=== PATIENT | female | born 1945 | race Caucasian/White ===

== ENCOUNTER 2017-05-03 08:24 | Day surgery (SDC) | payer MEDICAID ==
[2017-04-25 10:06] VITALS: BMI 40.8
[2017-05-03] MEDS ORDERED: Midazolam 2 MG/2 ML VIAL ONE (09:53)
[2017-05-03] MEDS ORDERED: Propofol 10 mg/ml Inj (20 ML) ONE (09:53)
[2017-05-03] MEDS ORDERED: Etomidate 40 MG/20 ML ML IV ONE (09:54)
[2017-05-03 10:18] VITALS: O2SAT 99
[2017-05-03] MEDS ORDERED: Sodium Chloride 0.9% 1,000 ML IV SCH (10:30)
[2017-05-03 13:47] VITALS: BP 118/61; PULSE 68; RESP 16; TEMP 98.5
== END 2017-05-03 12:25 | disposition home or self-care (01) ==
LOC: ENDO 08:24 → EDBD 09:15 → ENDO 12:25
PROVIDERS: ATTEND Internal Medicine Gastroenterology
DX: Z12.11 Encounter for screening for malignant neoplasm of colon (principal); K64.1 Second degree hemorrhoids; R10.13 Epigastric pain; K29.50 Unspecified chronic gastritis without bleeding; I10 Essential (primary) hypertension; E66.9 Obesity, unspecified; Z68.41 Body mass index [BMI] 40.0-44.9, adult
CPT/HCPCS: 43239; 45378; 88305; 88342; J2250; J2704; J3010; J7040 ×2

== ENCOUNTER 2017-09-06 10:03 | Emergency (ER) | payer MEDICAID ==
[2017-09-06 10:04] VITALS: BMI 40.8
--- NOTE | 2017-09-06 11:03 | ED PDOC ---
Arrival/HPI - General Chief Complaint: GI Problem Time Seen by Provider: 09/06/17 10:38 Historian: Patient - History of Present Illness Narrative History of Present Illness (Text): 09/06/17 11:03 This 71 yo female with pmh celiac disease, HTN, chronic diarrhea, s/p appendectomy, presents to to this ED c/o generalized abdominal pain pain, and diarrhea. Patient stated she has been having similar symptoms last month, when she had a CT scan of abdomen. CT scan demonstrated pancolitis. Patient started taking Cipro, and Flagyl x 4 days. Patient stated abdominal pain is not worse when compare from last month. Patient denies fever, sob, cp, leg swelling, recent travel, sick contact, or abnormal gait. Time/Duration: Other (see hpi) Context: Home Past Medical History - Provider Review Nursing Documentation Reviewed: Yes - Infectious Disease Hx of Infectious Diseases: None - Tetanus Immunization Tetanus Immunization: Unknown - Cardiac Hx Cardiac Disorders: Yes Hx Hypertension: Yes - Pulmonary Hx Respiratory Disorders: No - Neurological Hx Neurological Disorder: No - HEENT Hx HEENT Disorder: Yes Hx Cataracts: Yes - Renal Hx Renal Disorder: No - Endocrine/Metabolic Hx Endocrine Disorders: No - Hematological/Oncological Hx Blood Disorders: No - Integumentary Hx Dermatological Disorder: No - Musculoskeletal/Rheumatological Hx Musculoskeletal Disorders: Yes - Gastrointestinal Hx Gastrointestinal Disorders: Yes Hx Gastrointestinal Ulcer: Yes - Genitourinary/Gynecological Hx Genitourinary Disorders: No - Psychiatric Hx Emotional Abuse: No Hx Physical Abuse: No Hx Substance Use: No - Surgical History Hx Eye Surgery: Yes - Anesthesia Hx Anesthesia Reactions: No Hx Malignant Hyperthermia: No - Suicidal Assessment Feels Threatened In Home Enviroment: No Family/Social History - Physician Review Nursing Documentation Reviewed: Yes Family/Social History: Other (noncontributory) Smoking Status: Never Smoked Hx Alcohol Use: No Hx Substance Use: No Hx Substance Use Treatment: No Allergies/Home Meds Allergies/Adverse Reactions: Allergies aspirin Allergy (Verified 09/06/17 10:26) ITCHING gluten Allergy (Verified 09/06/17 10:26) DIARRHEA Home Medications: Home Meds Medication Instructions Recorded Confirmed Simvastatin [Zocor] 20 mg PO QPM 04/25/17 09/06/17 Ciprofloxacin [Cipro] 500 mg PO Q12 09/06/17 09/06/17 amLODIPine [Norvasc] 2.5 mg PO DAILY 09/06/17 09/06/17 metroNIDAZOLE [Flagyl] 500 mg PO Q8 09/06/17 09/06/17 Review of Systems - Review of Systems Constitutional: Normal. absent: Fatigue, Weight Change, Fevers Eyes: Normal ENT: Normal Respiratory: Normal Cardiovascular: Normal Gastrointestinal: Abdominal Pain, Diarrhea, Other (denies rectal bleeding). absent: Nausea, Vomiting Genitourinary Female: Normal. absent: Dysuria, Frequency, Hematuria, Urine Output Changes, Vaginal Bleeding, Vaginal Discharge Musculoskeletal: Normal. absent: Back Pain, Neck Pain Skin: Normal. absent: Rash Neurological: Normal. absent: Headache, Dizziness, Focal Weakness, Gait Changes , Speech Changes, Facial Droop, Disequilibrium, Seizure Endocrine: Normal Hemo/Lymphatic: Normal Psychiatric: Normal Physical Exam Vital Signs Temp Pulse Resp BP Pulse Ox 09/06/17 16:28 97.7 F 81 16 106/68 98 09/06/17 10:28 98.3 F 66 16 110/72 98 Temperature: Afebrile Blood Pressure: Normal Pulse: Regular Respiratory Rate: Normal Appearance: Positive for: Well-Appearing, Non-Toxic, Comfortable Pain Distress: None Mental Status: Positive for: Alert and Oriented X 3 - Systems Exam Head: Present: Atraumatic, Normocephalic Pupils: Present: PERRL Extroacular Muscles: Present: EOMI Conjunctiva: Present: Normal Mouth: Present: Moist Mucous Membranes Neck: Present: Normal Range of Motion Respiratory/Chest: Present: Clear to Auscultation, Good Air Exchange. No: Respiratory Distress, Accessory Muscle Use Cardiovascular: Present: Regular Rate and Rhythm, Normal S1, S2. No: Murmurs Abdomen: No: Tenderness, Distention, Peritoneal Signs, Rebound, Guarding Back: Present: Normal Inspection Upper Extremity: Present: Normal Inspection, Normal ROM. No: Cyanosis, Edema Lower Extremity: Present: Normal Inspection, Normal ROM. No: Edema Neurological: Present: GCS=15, CN II-XII Intact, Speech Normal, Motor Func Grossly Intact, Normal Sensory Function, Normal Cerebellar Funct, Gait Normal Skin: Present: Warm, Dry, Normal Color. No: Rashes Psychiatric: Present: Alert, Oriented x 3, Normal Insight, Normal Concentration Medical Decision Making ED Course and Treatment: 09/06/17 17:[address] Lewis, GI fellow who works with [facility]. She stated if patient continues with symptoms, patient should be admitted for observation. Dr. Dodd would see patient this weekend. 09/06/17 18:20 Re-evaluation. Patient feels better, but she still has symptoms. Discussed results and plan to admit with patient who expresses understanding. All questions answered and there is agreement with the plan 09/06/17 19:40 Patient changed her mind. Patient wants to be discharge home. She says she feels better. Patient ' son at bedside. Patient is requesting Pepcid, and Zofran. I recommended patient to stay for observation, but she prefers leaving hospital AMA Leaving Against Medical Advice (AMA): This patient is choosing to leave against medical advice. The EP has personally explained to the pt that choosing to do so may result in permanent bodily harm or . The EP discussed at great length that without further evaluation and monitoring there may be unforeseen circumstances and/or deterioration causing permanent bodily harm or as a result of their choice. The pt verbalized these risks back to the physician in laymans terms. The pt is alert, oriented, and shows the mental capacity to make clear decisions regarding the pts health care at this time. The pt continues to wish to leave against medical advice. In light of the pts decision to leave AMA, follow-up has been recommended and the pt is aware of the importance of following up as instructed. The pt has been advised that they should return to the ED immediately if they change their mind at any time, or if thier condition begins to change or worsen in any way. Re-evaluation Time: 18:20 Reassessment Condition: Re-examined, Improving,but remains with symptoms - Lab Interpretations Lab Results: 09/06/17 11:04 09/06/17 11:04 Lab Results 09/06/17 11:04: Sodium 141, Potassium 4.9, Chloride 109 H, Carbon Dioxide 22, Anion Gap 15, BUN 15, Creatinine 0.7, Est GFR ( Amer) > 60, Est GFR (Non- Af Amer) > 60, Random Glucose 86, Calcium 9.6, Total Bilirubin 0.6, AST 112 H, ALT 99 H, Alkaline Phosphatase 90, Total Protein 7.2, Albumin 3.9, Globulin 3.2 , Albumin/Globulin Ratio 1.2, Lipase 185 09/06/17 11:04: Urine Color Yellow, Urine Appearance Clear, Urine pH 6.0, Ur Specific [place] 1.010, Urine Protein Negative, Urine Glucose (UA) Negative, Urine Ketones Negative, Urine Blood Negative, Urine Nitrate Negative, Urine Bilirubin Negative, Urine Urobilinogen 0.2, Ur Leukocyte Esterase Negative 09/06/17 11:04: WBC 5.1, RBC 4.59, Hgb 12.4, Hct 38.0, MCV 82.8, MCH 27.0, MCHC 32.6, RDW 15.2 H, Plt Count 374, MPV 10.0, Gran % 42.2 L, Lymph % (Auto) 46.8 H , Chase % (Auto) 8.8 H, Eos % (Auto) 1.6, Baso % (Auto) 0.6, Gran # 2.17, Lymph # (Auto) 2.4, Chase # (Auto) 0.5, Eos # (Auto) 0.1, Baso # (Auto) 0.03 I have reviewed the lab results: Yes Interpretation: Abnormal lab values (mild elevated LFTs) - RAD Interpretation Narrative RAD Interpretations (Text): 09/06/17 18:19 PROCEDURE: CT Abdomen and Pelvis without intravenous contrast HISTORY: Stomach pain, diarrhea COMPARISON: 08/05/2017. CT abdomen and pelvis TECHNIQUE: Unenhanced study. Neither oral nor intravenous contrast administered. Sensitivity and specificity for acute inflammatory processes limited by the absence of oral and intravenous contrast. Total exam DLP = 932.23 mGy-cm. This CT exam was performed using one or more of the following dose reduction techniques: Automated exposure control, adjustment of the mA and/or kV according to patient size, and/or use of iterative reconstruction technique. FINDINGS: LOWER THORAX: Mild distal esophageal thickening. Similar finding identified on the previous examination. LIVER: Unremarkable. No gross lesion or ductal dilatation. GALLBLADDER AND BILE DUCTS: Unremarkable. PANCREAS: Unremarkable. No gross lesion or ductal dilatation. SPLEEN: Unremarkable. ADRENALS: Unremarkable. No mass. KIDNEYS AND URETERS: Unremarkable. No hydronephrosis. No solid mass. VASCULATURE: Unremarkable. No aortic aneurysm. BOWEL: Fluid-filled loops of small bowel compatible with enteritis. No evidence of mechanical obstruction. Fluid-filled colon also identified. No mechanical obstructing lesions are identified. APPENDIX: Unremarkable. Normal appendix. PERITONEUM: Unremarkable. No free fluid. No free air. LYMPH NODES: Unremarkable. No enlarged lymph nodes. BLADDER: Unremarkable. REPRODUCTIVE: Unremarkable. BONES: No acute fracture. OTHER FINDINGS: None. IMPRESSION: Findings suggestive of enteritis without obstructing lesion. Similar less pronounced changes identified in the colon. Additional benign and/or incidental findings described above. Radiology Orders: 09/06/17 16:58 ABD & PELVIS W/O PO OR IV CONT [CT] Stat 09/06/17 18:24 CHEST PORTABLE [RAD] Stat - Medication Orders Current Medication Orders: Discontinued Medications Famotidine (Pepcid 20mg/50ml Premix) 20 mg IVPB STAT STA Stop: 09/06/17 11:05 Last Admin: 09/06/17 14:49 Dose: 20 mg eMAR Start Stop Document 09/06/17 14:49 [email or web address] (Rec: 09/06/17 14:50 [email or web address] [id number]) Intravenous Solution Start Date 09/06/17 Start Time 14:50 Sodium Chloride (Sodium Chloride 0.9%) 1,000 mls @ 999 mls/hr IV .Q1H1M STA Stop: 09/06/17 12:06 Last Admin: 09/06/17 13:00 Dose: 999 mls/hr eMAR Start Stop Document 09/06/17 13:00 [email or web address] (Rec: 09/06/17 14:48 [email or web address] [id number]) Intravenous Solution Start Date 09/06/17 Start Time 13:00 Morphine Sulfate (Morphine) 2 mg IVP STAT STA Stop: 09/06/17 11:08 Last Admin: 09/06/17 14:49 Dose: 2 mg MAR Pain Assessment Document 09/06/17 14:49 [email or web address] (Rec: 09/06/17 14:49 [email or web address] [id number]) Pain Reassessment Is this a pain reassessment? No Sleep Is patient sleeping during reassessment? No Presence of Pain Presence of Pain Yes Pain Scale Used Pain Scale Used Numeric Location Pain Location Body Site Abdomen Description Description Constant Intensity of Pain at present 7 Pain Behavior Facial Grimacing Aggravating Factors Changing Position Alleviating Factors/Management Medication Techniques Alleviating Factors Medication IVP Administration Document 09/06/17 14:49 [email or web address] (Rec: 09/06/17 14:49 [email or web address] [id number]) Charges for Administration # of IVP Administrations 1 Ondansetron HCl (Zofran Inj) 4 mg IVP STAT STA Stop: 09/06/17 11:05 Last Admin: 09/06/17 14:48 Dose: 4 mg IVP Administration Document 09/06/17 14:48 [facility] (Rec: 09/06/17 14:48 [facility] [id number]) Charges for Administration # of IVP Administrations 1 Disposition/Present on Arrival - Present on Arrival Any Indicators Present on Arrival: No History of DVT/PE: No History of Uncontrolled Diabetes: No Urinary Catheter: No History of Decub. Ulcer: No History Surgical Site Infection Following: None - Disposition Have Diagnosis and Disposition been Completed?: Yes Diagnosis: Enteritis, Colitis, Diarrhea, Intractable abdominal pain, Failure of outpatient treatment Disposition: AGAINST MEDICAL ADVICE Disposition Time: 19:55 Patient Problems: Current Active Problems Problem Status Onset Diarrhea Acute Enteritis Acute Colitis Acute Intractable abdominal pain Acute Failure of outpatient treatment Acute Condition: UNKNOWN Additional Instructions: Return to emergency if symptoms worsen. make sure to see your doctor tomorrow. drink Pedialyte to keep yourself hydrated Prescriptions: Famotidine [Pepcid] 40 mg PO DAILY #10 tablet Ondansetron ODT [Zofran ODT] 4 mg PO Q4H PRN #15 odt PRN Reason: Nausea/Vomiting Referrals: Robby Saucedo MD [Staff Provider] - Follow up with primary Forms: [employer] ([place])
[2017-09-06] MEDS ORDERED: Famotidine 20mg/50ml Premix IVPB STA (11:04)
[2017-09-06] MEDS ORDERED: Sodium Chloride 0.9% 1,000 ML IV STA (11:06)
[2017-09-06] MEDS ORDERED: Morphine 4 mg/ml ISec IVP STA (11:07)
[2017-09-06 11:32] LABS: BASO # 0.03 K/mm3 (0.0-2.0); BASO % 0.6 % (0.0-3.0); EOS # 0.1 (0.0-0.7); EOS % 1.6 % (1.5-5.0); GRAN # 2.17 (1.4-6.5); GRAN % 42.2 % (50.0-68.0); HEMOGLOBIN 12.4 g/dL (12.0-16.0); LYMPH # 2.4 (1.2-3.4); LYMPH % 46.8 % (22.0-35.0); MEAN CELL VOLUME 82.8 fl (80.0-105.0); MEAN CORPUSCULAR HGB CONC 32.6 g/dl (31.0-37.0); MONO # 0.5 (0.1-0.6); MONO % 8.8 % (1.0-6.0); RBC 4.59 10^6/uL (3.5-6.1); RED CELL DISTRIBUTION WIDTH 15.2 % (11.5-14.5); WHITE BLOOD COUNT 5.1 10^3/ul (4.5-11.0)
[2017-09-06 11:33] LABS: URINE BILIRUBIN NEGATIVE (NEGATIVE); URINE BLOOD NEGATIVE (NEGATIVE); URINE GLUCOSE (UA) NEGATIVE (NEGATIVE); URINE LEUKOCYTE ESTERASE NEGATIVE Leu/uL (NEGATIVE); URINE PROTEIN NEGATIVE mg/dL (<30 mg/dL); URINE UROBILINOGEN 0.2 E.U./dL (<1 E.U./dL)
[2017-09-06 11:37] LABS: URINE APPEARANCE CLEAR (CLEAR); URINE COLOR YELLOW (YELLOW)
[2017-09-06 12:20] LABS: ALB/GLOB RATIO 1.2 (1.1-1.8); ALBUMIN 3.9 g/dL (3.0-4.8); ALT/SGPT 99 U/L (7-56); AST/SGOT 112 U/L (14-36); BLOOD UREA NITROGEN 15 mg/dL (7-21); CALCIUM 9.6 mg/dL (8.4-10.5); GFR AFRICAN-AMERICAN > 60; GFR NON-AFRICAN AMERICAN > 60; LIPASE 185 U/L (23-300)
[2017-09-06] MEDS ORDERED: Pedialyte 1000 ml PO ONE (15:26)
[2017-09-06] MEDS ORDERED: Iohexol 350 MG/100 ML VIAL ONE (17:02)
--- NOTE | 2017-09-06 18:17 | CT ---
PROCEDURE: CT Abdomen and Pelvis without intravenous contrast HISTORY: Stomach pain, diarrhea COMPARISON: 08/05/2017. CT abdomen and pelvis TECHNIQUE: Unenhanced study. Neither oral nor intravenous contrast administered. Sensitivity and specificity for acute inflammatory processes limited by the absence of oral and intravenous contrast. Total exam DLP = 932.23 mGy-cm. This CT exam was performed using one or more of the following dose reduction techniques: Automated exposure control, adjustment of the mA and/or kV according to patient size, and/or use of iterative reconstruction technique. FINDINGS: LOWER THORAX: Mild distal esophageal thickening. Similar finding identified on the previous examination. LIVER: Unremarkable. No gross lesion or ductal dilatation. GALLBLADDER AND BILE DUCTS: Unremarkable. PANCREAS: Unremarkable. No gross lesion or ductal dilatation. SPLEEN: Unremarkable. ADRENALS: Unremarkable. No mass. KIDNEYS AND URETERS: Unremarkable. No hydronephrosis. No solid mass. VASCULATURE: Unremarkable. No aortic aneurysm. BOWEL: Fluid-filled loops of small bowel compatible with enteritis. No evidence of mechanical obstruction. Fluid-filled colon also identified. No mechanical obstructing lesions are identified. APPENDIX: Unremarkable. Normal appendix. PERITONEUM: Unremarkable. No free fluid. No free air. LYMPH NODES: Unremarkable. No enlarged lymph nodes. BLADDER: Unremarkable. REPRODUCTIVE: Unremarkable. BONES: No acute fracture. OTHER FINDINGS: None. IMPRESSION: Findings suggestive of enteritis without obstructing lesion. Similar less pronounced changes identified in the colon. Additional benign and/or incidental findings described above.
[2017-09-07 02:20] VITALS: BP 110/81; PULSE 85; RESP 17; TEMP 98.2; O2SAT 100
--- NOTE | 2017-09-07 10:05 | RAD ---
HISTORY: admission COMPARISON: 05/22/2015 FINDINGS: LUNGS: No active pulmonary disease. PLEURA: No significant pleural effusion identified, no pneumothorax apparent. CARDIOVASCULAR: Mild cardiomegaly OSSEOUS STRUCTURES: No significant abnormalities. VISUALIZED UPPER ABDOMEN: Normal. OTHER FINDINGS: None. IMPRESSION: No active disease.
== END 2017-09-06 20:20 | disposition left against medical advice (07) ==
LOC: ED 10:03
DX: K52.9 Noninfective gastroenteritis and colitis, unspecified (principal); R10.9 Unspecified abdominal pain; I10 Essential (primary) hypertension
CPT/HCPCS: 71045; 74176; 80053; 81003; 83690; 85025; 96374; 96375; 99284; J2270; J2405; J7040; Q9967

== ENCOUNTER 2017-09-08 17:42 | Inpatient (IN) | payer MEDICAID ==
[2017-09-08] MEDS ORDERED: Sodium Chloride 0.9% 1,000 ML IV STA (18:04)
[2017-09-08] MEDS ORDERED: Morphine 4 mg/ml ISec IVP STA (18:04)
--- NOTE | 2017-09-08 18:07 | ED PDOC ---
Arrival/HPI - General Chief Complaint: Abdominal Pain Time Seen by Provider: 09/08/17 18:03 Historian: Patient, Family (son at bedside, translating), Metal Finish Inspector (son) - History of Present Illness Narrative History of Present Illness (Text): 09/08/17 18:03 (son at bedside/translating) pt p/w + ~ 1 week onset of persistent/daily diarrhea; pt states diarrhea episodes are as much as ~ 30 times daily; pt states also noted worsening left lower abd tenderness; pt has had similar symptoms in the past, attributed to her celiac disorder/disease; pt states + chills, + weakness, + increasing fatigue; pt states no fever/sweats, no cp/sob/palpitations, no n/v, no appetite , no urinary changes, no gross bleeding, no fall/trauma/sick contact, no travel. per son, pt may have eaten something containing non-gluten free product and that precipitated pt's current acute abd pain episodes with persistent diarrhea ; pt denied LOC pt denied other complaints pt is here for further eval. pt was recently treated with ABX (cipro/flagyl) only took it for 3 days but complained that the medications causes her severe abd pain/nausea/vomiting and her PCP suggests to stop the abx; pt was seen in the ED 2 days ago for similar complaint and was offered admission but refused, and left AMA PCP: Dr Chacon GI: DR MAIN? Time/Duration: Other (1 week of worsening diarrhea, worsening left sided abd pain; hx of celiac disease) Symptom Onset: Gradual Symptom Course: Worsening Quality: Tightness, Cramping Severity Level: Severe Activities at Onset: Rest Context: Home Past Medical History - Provider Review Nursing Documentation Reviewed: Yes - Travel History Have you recently traveled outside [place] w/in the past 3 mons?: No - Past History Past History: No Previous - Infectious Disease Hx of Infectious Diseases: None - Tetanus Immunization Tetanus Immunization: Unknown - Reproductive Menopause: Yes Currently : No - Cardiac Hx Cardiac Disorders: Yes Hx Hypertension: Yes - Pulmonary Hx Respiratory Disorders: No - Neurological Hx Neurological Disorder: No - HEENT Hx HEENT Disorder: Yes Hx Cataracts: Yes - Renal Hx Renal Disorder: No - Endocrine/Metabolic Hx Endocrine Disorders: No - Hematological/Oncological Hx Blood Disorders: No - Integumentary Hx Dermatological Disorder: No - Musculoskeletal/Rheumatological Hx Musculoskeletal Disorders: Yes - Gastrointestinal Hx Gastrointestinal Disorders: Yes Hx Gastrointestinal Ulcer: Yes Other/Comment: Celiac Disease - Genitourinary/Gynecological Hx Genitourinary Disorders: No - Psychiatric Hx Emotional Abuse: No Hx Physical Abuse: No Hx Substance Use: No - Surgical History Hx Eye Surgery: Yes - Anesthesia Hx Anesthesia: Yes Hx Anesthesia Reactions: No Hx Malignant Hyperthermia: No - Suicidal Assessment Feels Threatened In Home Enviroment: No Family/Social History - Physician Review Nursing Documentation Reviewed: Yes Family/Social History: No Known Family HX Smoking Status: Never Smoked Hx Alcohol Use: No Hx Substance Use: No Hx Substance Use Treatment: No Allergies/Home Meds Allergies/Adverse Reactions: Allergies aspirin Allergy (Verified 09/06/17 10:26) ITCHING gluten Allergy (Verified 09/06/17 10:26) DIARRHEA Home Medications: Home Meds Medication Instructions Recorded Confirmed Simvastatin [Zocor] 20 mg PO QPM 04/25/17 09/08/17 Ciprofloxacin [Cipro] 500 mg PO Q12 09/06/17 09/08/17 amLODIPine [Norvasc] 2.5 mg PO DAILY 09/06/17 09/08/17 metroNIDAZOLE [Flagyl] 500 mg PO Q8 09/06/17 09/08/17 Review of Systems - Review of Systems Constitutional: Fatigue. absent: Fevers Eyes: Normal ENT: Normal Respiratory: Normal. absent: SOB Cardiovascular: Normal. absent: Chest Pain Gastrointestinal: Abdominal Pain, Stool Changes, Diarrhea, Appetite Changes. absent: Nausea, Vomiting Genitourinary Female: Normal Musculoskeletal: Normal Skin: Normal. absent: Rash Neurological: Dizziness. absent: Headache Endocrine: Normal Hemo/Lymphatic: Normal Psychiatric: Normal Physical Exam Vital Signs Reviewed: Yes Vital Signs Temp Pulse Resp BP Pulse Ox 09/08/17 17:43 97.9 F 72 18 134/67 99 Temperature: Afebrile Blood Pressure: Normal Pulse: Regular Respiratory Rate: Normal Appearance: Positive for: Well-Appearing, Non-Toxic, Uncomfortable, Other (alert /awake, GCS = 15, oriented x 3, resting in bed, uncomfortable, mildly in distress due to abd pain during exam, cooperative) Pain Distress: None Mental Status: Positive for: Alert and Oriented X 3 - Systems Exam Head: Present: Atraumatic, Normocephalic Pupils: Present: PERRL, Other (no nystagmus, no photophobia, sclera anicteric, visual field intact b/l) Extroacular Muscles: Present: EOMI Conjunctiva: Present: Normal Ears: Present: Normal Mouth: Present: Other (mild dry oral mucosa, uvula/tongue are midline, no exudate/lesions, no dysphonia) Pharnyx: Present: Normal Nose (External): Present: Atraumatic Nose (Internal): Present: Normal Inspection Neck: Present: Normal Range of Motion, Trachea Midline, Other (no midline tenderness, no nuchal rigidity, no step off). No: Meningeal Signs, MIDLINE TENDERNESS, Paraspinal Tenderness Respiratory/Chest: Present: Clear to Auscultation, Good Air Exchange, Other ( CTA b/l, no w/r/r). No: Respiratory Distress, Accessory Muscle Use Cardiovascular: Present: Regular Rate and Rhythm, Normal S1, S2. No: Murmurs, Tachycardic Abdomen: Present: Tenderness, Normal Bowel Sounds, Other (+ left lower abd tenderness, well nourished female, no pacheco's sign, no mcburney's point tenderness, no masses/rebound/guarding/rigidity) Back: Present: Normal Inspection. No: CVA Tenderness, Midline Tenderness, Paraspinal Tenderness Upper Extremity: Present: Normal Inspection, Normal ROM, NORMAL PULSES, Neurovascularly Intact Lower Extremity: Present: Normal Inspection, NORMAL PULSES, Normal ROM, Neurovascularly Intact. No: Deformity Neurological: Present: GCS=15, CN II-XII Intact, Speech Normal Skin: Present: Warm, Normal Color, Other (cap refill~ 1sec, no ulcerations, no petechiae, no rashes) Psychiatric: Present: Alert, Oriented x 3 Medical Decision Making ED Course and Treatment: 09/08/17 18:07 Impression: acute on chronic diarrhea/left abd pain i have consider all the differential diagnosis regarding pt's chief medical complaints/clinical findings, including but are not limited to: colitis, celiac disorder, persistent diarrhea A/P: dehydration, colitis, diarrhea - labs - iv - xray - ct? - cultures - supportive care - observe/reevaluation 09/08/17 20:00 pt continued to feel miserable pt states she is continuing having watery diarrhea while in the ED pt states her pain is controlled currently given patient already had a CT 2 days ago, will not repeate it 2039 - i spoke with Dr Lewis, mail messenger contractor for [facility], agrees with ED mgt/dx/txt, recommend restarting Cipro/flagyl IV and start patient on Clear fluids and they will re-eval/monitor patient in the morning 2049 - I spoke to Dr Shelley, mail messenger contractor hospitalists, [facility], agrees with admission 09/08/17 21:20 discussed with pt and her family regarding pt's symptoms/medical findings at length, and recommended patient for admission pt agrees now to be admitted pt states her abd pain is controlled, currently no pain pt states she continues to have to use the bathroom, due to her persistent diarrhea Re-evaluation Time: 20:35 Reassessment Condition: Improving,but remains with symptoms - Lab Interpretations Lab Results: 09/08/17 19:00 09/08/17 19:00 Lab Results 09/08/17 19:10: pO2 45, VBG pH 7.27 L, VBG pCO2 54.0, VBG HCO3 24.8, VBG Total CO2 26.5, VBG O2 Sat (Calc) 83.7 H, VBG Base Excess -2.9 L, VBG Potassium 3.8, Glucose 88, Lactate 0.7, FiO2 21.0, Sodium 139.0, Chloride 110.0 H, Venous Blood Potassium 3.8 09/08/17 19:10: Urine Color Yellow, Urine Appearance Clear, Urine pH 6.0, Ur Specific [place] 1.020, Urine Protein Negative, Urine Glucose (UA) Negative, Urine Ketones Negative, Urine Blood Small H, Urine Nitrate Negative, Urine Bilirubin Negative, Urine Urobilinogen 0.2, Ur Leukocyte Esterase Negative, Urine RBC 15 - 20, Urine WBC 5 - 10, Ur Epithelial Cells 10 - 12, Urine Bacteria Small 09/08/17 19:00: Sodium 146, Potassium 4.1, Chloride 109 H, Carbon Dioxide 25, Anion Gap 16, BUN 13, Creatinine 0.7, Est GFR ( Amer) > 60, Est GFR (Non- Af Amer) > 60, Random Glucose 90, Calcium 9.3, Magnesium 1.7, Total Bilirubin 0.3, AST 47 H D, ALT 87 H, Alkaline Phosphatase 80, Total Protein 7.2, Albumin 3.9, Globulin 3.2, Albumin/Globulin Ratio 1.2, Lipase 74 09/08/17 19:00: PT 13.0 H, INR 1.14 H, APTT 32.4 09/08/17 19:00: WBC 5.5, RBC 4.59, Hgb 12.5, Hct 38.7, MCV 84.3, MCH 27.2, MCHC 32.3, RDW 15.8 H, Plt Count 356, MPV 10.1, Gran % 45.1 L, Lymph % (Auto) 45.2 H , [place] % (Auto) 8.1 H, Eos % (Auto) 1.4 L, Baso % (Auto) 0.2, Gran # 2.49, Lymph # (Auto) 2.5, [place] # (Auto) 0.5, Eos # (Auto) 0.1, Baso # (Auto) 0.01 I have reviewed the lab results: Yes Interpretation: Abnormal lab values (elevated LFTs) - RAD Interpretation Narrative RAD Interpretations (Text): 09/08/17 20:46 (studies performed 2 days ago) HISTORY: admission COMPARISON: 05/22/2015 FINDINGS: LUNGS: No active pulmonary disease. PLEURA: No significant pleural effusion identified, no pneumothorax apparent. CARDIOVASCULAR: Mild cardiomegaly OSSEOUS STRUCTURES: No significant abnormalities. VISUALIZED UPPER ABDOMEN: Normal. OTHER FINDINGS: None. IMPRESSION: No active disease. 09/08/17 20:47 PROCEDURE: CT Abdomen and Pelvis without intravenous contrast HISTORY: Stomach pain, diarrhea COMPARISON: 08/05/2017. CT abdomen and pelvis TECHNIQUE: Unenhanced study. Neither oral nor intravenous contrast administered. Sensitivity and specificity for acute inflammatory processes limited by the absence of oral and intravenous contrast. Total exam DLP = 932.23 mGy-cm. This CT exam was performed using one or more of the following dose reduction techniques: Automated exposure control, adjustment of the mA and/or kV according to patient size, and/or use of iterative reconstruction technique. FINDINGS: LOWER THORAX: Mild distal esophageal thickening. Similar finding identified on the previous examination. LIVER: Unremarkable. No gross lesion or ductal dilatation. GALLBLADDER AND BILE DUCTS: Unremarkable. PANCREAS: Unremarkable. No gross lesion or ductal dilatation. SPLEEN: Unremarkable. ADRENALS: Unremarkable. No mass. KIDNEYS AND URETERS: Unremarkable. No hydronephrosis. No solid mass. VASCULATURE: Unremarkable. No aortic aneurysm. BOWEL: Fluid-filled loops of small bowel compatible with enteritis. No evidence of mechanical obstruction. Fluid-filled colon also identified. No mechanical obstructing lesions are identified. APPENDIX: Unremarkable. Normal appendix. PERITONEUM: Unremarkable. No free fluid. No free air. LYMPH NODES: Unremarkable. No enlarged lymph nodes. BLADDER: Unremarkable. REPRODUCTIVE: Unremarkable. BONES: No acute fracture. OTHER FINDINGS: None. IMPRESSION: Findings suggestive of enteritis without obstructing lesion. Similar less pronounced changes identified in the colon. Additional benign and/or incidental findings described above. Adzing And Boring Machine Helper: Radiologist - Medication Orders Current Medication Orders: Ciprofloxacin (Cipro 400mg/200ml Dsw) 400 mg in 200 mls @ 133.3 mls/hr IVPB STAT STA PRN Reason: Protocol Stop: 09/08/17 22:31 Metronidazole (Flagyl) 500 mg in 100 mls @ 100 mls/hr IVPB STAT STA PRN Reason: Protocol Stop: 09/08/17 22:01 Discontinued Medications Sodium Chloride (Sodium Chloride 0.9%) 1,000 mls @ 1,000 mls/hr IV .Q1H STA Stop: 09/08/17 19:03 Last Admin: 09/08/17 18:53 Dose: 1,000 mls/hr eMAR Start Stop Document 09/08/17 18:53 EQ (Rec: 09/08/17 18:53 EQ [id number]) Intravenous Solution Start Date 09/08/17 Start Time 18:53 Famotidine (Pepcid 20mg/50ml Premix) 20 mg in 50 mls @ 100 mls/hr IVPB STAT STA Stop: 09/08/17 21:11 Last Admin: 09/08/17 21:03 Dose: 100 mls/hr eMAR Start Stop Document 09/08/17 21:03 EQ (Rec: 09/08/17 21:04 EQ [id number]) Intravenous Solution Start Date 09/08/17 Start Time 21:03 Morphine Sulfate (Morphine) 4 mg IVP STAT STA Stop: 09/08/17 18:05 Last Admin: 09/08/17 18:53 Dose: Not Given Non-Admin Reason: Patient Refused MAR Pain Assessment Document 09/08/17 18:53 EQ (Rec: 09/08/17 18:53 EQ [id number]) Pain Reassessment Is this a pain reassessment? No Sleep Is patient sleeping during reassessment? No Presence of Pain Presence of Pain Yes Ondansetron HCl (Zofran Inj) 4 mg IVP STAT STA Stop: 09/08/17 18:05 Last Admin: 09/08/17 18:52 Dose: 4 mg IVP Administration Document 09/08/17 18:52 EQ (Rec: 09/08/17 18:52 EQ [id number]) Charges for Administration # of IVP Administrations 1 Disposition/Present on Arrival - Present on Arrival Any Indicators Present on Arrival: No History of DVT/PE: No History of Uncontrolled Diabetes: No Urinary Catheter: No History of Decub. Ulcer: No History Surgical Site Infection Following: None - Disposition Have Diagnosis and Disposition been Completed?: Yes Diagnosis: Colitis, Enteritis, Diarrhea, Dehydration, Intractable abdominal pain, Celiac disease Disposition: HOSPITALIZED Disposition Time: 21:05 Patient Plan: Admission Condition: STABLE Print Language: MALTESE Referrals: Oswaldo Montanez MD [Primary Care Provider] - Follow up with primary Forms: [employer] (Maldivian)
[2017-09-08 19:16] LABS: BASO # 0.01 K/mm3 (0.0-2.0); BASO % 0.2 % (0.0-3.0); EOS # 0.1 (0.0-0.7); EOS % 1.4 % (1.5-5.0); GRAN # 2.49 (1.4-6.5); GRAN % 45.1 % (50.0-68.0); HEMOGLOBIN 12.5 g/dL (12.0-16.0); LYMPH # 2.5 (1.2-3.4); LYMPH % 45.2 % (22.0-35.0); MEAN CELL VOLUME 84.3 fl (80.0-105.0); MEAN CORPUSCULAR HEMOGLOBIN 27.2 pg (25.0-35.0); MEAN CORPUSCULAR HGB CONC 32.3 g/dl (31.0-37.0); MEAN PLATELET VOLUME 10.1 fl (7.0-11.0); MONO # 0.5 (0.1-0.6); MONO % 8.1 % (1.0-6.0); RBC 4.59 10^6/uL (3.5-6.1); RED CELL DISTRIBUTION WIDTH 15.8 % (11.5-14.5); WHITE BLOOD COUNT 5.5 10^3/ul (4.5-11.0)
[2017-09-08 19:35] LABS: URINE BILIRUBIN NEGATIVE (NEGATIVE); URINE BLOOD SMALL (NEGATIVE); URINE GLUCOSE (UA) NEGATIVE (NEGATIVE); URINE LEUKOCYTE ESTERASE NEGATIVE Leu/uL (NEGATIVE); URINE PROTEIN NEGATIVE mg/dL (<30 mg/dL); URINE UROBILINOGEN 0.2 E.U./dL (<1 E.U./dL)
[2017-09-08 19:36] LABS: URINE APPEARANCE CLEAR (CLEAR); URINE COLOR YELLOW (YELLOW)
[2017-09-08 19:40] LABS: URINE BACTERIA SMALL (NEG); URINE RBC 15 - 20 /hpf (0-2)
[2017-09-08 19:41] LABS: INR 1.14 (0.93-1.08); PARTIAL THROMBOPLASTIN TIME 32.4 Seconds (25.1-36.5)
[2017-09-08 19:50] LABS: VENOUS BLOOD GAS BASE EXCESS -2.9 mmol/L (0.0-2.0); VENOUS BLOOD GAS PO2 45 mm/Hg (30-55); VENOUS BLOOD PH 7.27 (7.32-7.43)
[2017-09-08 19:51] LABS: ALB/GLOB RATIO 1.2 (1.1-1.8); ALBUMIN 3.9 g/dL (3.0-4.8); ALT/SGPT 87 U/L (7-56); AST/SGOT 47 U/L (14-36); BLOOD UREA NITROGEN 13 mg/dL (7-21); CALCIUM 9.3 mg/dL (8.4-10.5); GFR AFRICAN-AMERICAN > 60; GFR NON-AFRICAN AMERICAN > 60; LIPASE 74 U/L (23-300)
[2017-09-08] MEDS ORDERED: Iohexol 350 MG/100 ML VIAL ONE (20:40)
[2017-09-08] MEDS ORDERED: Famotidine 20mg/50ml 20 MG/50 ML BAG IVPB STA (20:42)
[2017-09-08] MEDS ORDERED: Ciprofloxacin 400mg/200ml D5W 400 MG/200 ML BAG IVPB STA (21:01)
[2017-09-08] MEDS ORDERED: metroNIDAZOLE IV 500 mg/100 ml 500 MG/100 ML BAG IVPB STA (21:02)
--- NOTE | 2017-09-08 22:29 | CP.PCM.HP ---
<Fransisco De Paz - Last Filed: 09/08/17 22:24> History of Present Illness - History of Present Illness History of Present Illness: CC: Diarrhea HPI: 71 year old female with past medical history of HTN, GERD, vertigo and celiac disease who presents with multiple episodes of diarrhea and abdominal discomfort. Patient is joined by her son who aids in the translation. Patient reports she has been having 20 to 30 episodes of diarrhea daily for the past few days. Patient reports diarrhea symptoms for the past 4-5 weeks. Patient was recently seen in [facility] for similar symptoms. At that time patient had abdominal CT showing pancolitis. Patient was recently treated with ciprofloxacin and metronidazole for symptoms of colitis. Patient reports not finishing her antibiotic regiment due to it causing nausea and vomiting as well as body aches. Patient reports that she tries to adhere to gluten free diet but that she finds it difficult. Patient was previously seen in ED 2 days ago for similar symptoms and was offered admission but had refused and left AMA according to records. Patient admits to chills, weakness, increasing fatigue at this time. She denies chest pain, shortness of breath, palpitations, nausea, vomiting, urinary symptoms, recent travel or sick contacts. PCP: Dr. Chacon GI: Dr. Saucedo PMH: Celiac disease, HTN Sochx: Denies tobacco, etoh, ID - Lives at home with family ALL: Aspirin, Gluten allergy Meds: Norvasc, pepcid, simvastatin Present on Admission - Present on Admission Any Indicators Present on Admission: No Review of Systems - Review of Systems All systems: reviewed and no additional remarkable complaints except (as mentioned in HPI) Past Patient History - Infectious Disease Hx of Infectious Diseases: None - Tetanus Immunizations Tetanus Immunization: Unknown - Past Medical History & Family History Past Medical History?: Yes - Past Social History Smoking Status: Never Smoked Alcohol: None Drugs: Denies Home Situation {Lives}: With Family - CARDIAC Hx Cardiac Disorders: Yes Hx Hypertension: Yes - PULMONARY Hx Respiratory Disorders: No - NEUROLOGICAL Hx Neurological Disorder: No - HEENT Hx HEENT Problems: Yes Hx Cataracts: Yes - RENAL Hx Chronic Kidney Disease: No - ENDOCRINE/METABOLIC Hx Endocrine Disorders: No - HEMATOLOGICAL/ONCOLOGICAL Hx Blood Disorders: No - INTEGUMENTARY Hx Dermatological Problems: No - MUSCULOSKELETAL/RHEUMATOLOGICAL Hx Musculoskeletal Disorders: Yes - GASTROINTESTINAL Hx Gastrointestinal Disorders: Yes Other/Comment: Celiac Disease - GENITOURINARY/GYNECOLOGICAL Hx Genitourinary Disorders: No - PSYCHIATRIC Hx Emotional Abuse: No Hx Physical Abuse: No Hx Substance Use: No - SURGICAL HISTORY Hx Eye Surgery: Yes - ANESTHESIA Hx Anesthesia: Yes Hx Anesthesia Reactions: No Hx Malignant Hyperthermia: No Meds Allergies/Adverse Reactions: Allergies Allergy/AdvReac Type Severity Reaction Status Date / Time aspirin Allergy ITCHING Verified 09/06/17 10:26 gluten Allergy DIARRHEA Verified 09/06/17 10:26 Physical Exam - Head Exam Head Exam: ATRAUMATIC, NORMAL INSPECTION, NORMOCEPHALIC - Eye Exam Eye Exam: EOMI, PERRL - Respiratory Exam Respiratory Exam: Clear to Auscultation Bilateral, NORMAL BREATHING PATTERN. absent: Rales, Rhonchi, Wheezes - Cardiovascular Exam Cardiovascular Exam: REGULAR RHYTHM, +S1, +S2 - GI/Abdominal Exam GI & Abdominal Exam: Diminished Bowel Sounds, Soft, Tenderness (LUQ, LLQ). absent: Firm, Hernia, Rebound, Rigid - Extremities Exam Extremities exam: Positive for: normal capillary refill, pedal pulses present. Negative for: calf tenderness - Neurological Exam Neurological exam: Alert, CN II-XII Intact, Normal Gait, Oriented x3 - Psychiatric Exam Psychiatric exam: Normal Affect, Normal Mood - Skin Skin Exam: Dry, Warm Results - Vital Signs Recent Vital Signs: Last Vital Signs Temp 97.9 F 09/08/17 17:43 Pulse 75 09/08/17 21:59 Resp 18 09/08/17 21:59 BP 100/60 09/08/17 21:59 Pulse Ox 97 09/08/17 21:59 - Labs Result Diagrams: 09/08/17 19:00 09/08/17 19:00 Assessment & Plan - Assessment and Plan (Free Text) Assessment: 71 year old female with past medical history of HTN, GERD, vertigo and celiac disease who presents with multiple episodes of diarrhea and abdominal discomfort. Patient evaluated in ED 2 days prior to current presentation, evaluated at that time with Abdominal CT showing pancolitis. Patient admitted for IV antibiotics and IVF. Plan: Acute on Chronic Diarrhea - Etiology: Colitis v. Celiac disorder flare vs. Persistent Diarrhea - Celiac Disease flare - CT abdomen(09/06/2017): Findings suggestive of enteritis without obstructing lesion. Similar less pronounced changes identified in the colon. - GI consulted, Dr. Saucedo - Cipr/yl - Stool cultures - Liquid diet, advance as tolerated - Replete electrolytes as needed HTN - VSS at this time - Monitor DVT ppx: Heparin GI ppx: Protonix Patient case and plan discussed with attending Marshall De Paz PGY-1 - Date & Time Date: 09/08/17 Time: 22:27 <KarstenTomramos - Last Filed: 09/12/17 03:32> Results - Vital Signs Recent Vital Signs: Last Vital Signs Temp 97.5 F L 09/11/17 06:00 Pulse 59 L 09/11/17 06:00 Resp 20 09/11/17 06:00 BP 129/83 09/11/17 10:02 Pulse Ox 97 09/11/17 06:00 - Labs Result Diagrams: 09/11/17 06:00 09/11/17 06:00 Labs: Laboratory Results - last 24 hr 09/09/17 09/11/17 09/11/17 07:30 06:00 06:00 WBC 4.8 RBC 4.44 Hgb 11.8 L Hct 36.8 MCV 82.9 MCH 26.6 MCHC 32.1 RDW 15.7 H Plt Count 320 MPV 10.4 Gran % 43.0 L Lymph % (Auto) 47.2 H [place] % (Auto) 7.3 H Eos % (Auto) 2.1 Baso % (Auto) 0.4 Gran # 2.05 Lymph # (Auto) 2.3 [place] # (Auto) 0.4 Eos # (Auto) 0.1 Baso # (Auto) 0.02 Sodium 146 Potassium 3.7 Chloride 110 H Carbon Dioxide 24 Anion Gap 16 BUN 7 Creatinine 0.6 L Est GFR ( Amer) > 60 Est GFR (Non-Af Amer) > 60 Random Glucose 98 Calcium 8.8 Total Bilirubin 0.3 AST 30 ALT 54 Alkaline Phosphatase 70 Total Protein 6.3 Albumin 3.3 Globulin 3.0 Albumin/Globulin Ratio 1.1 Endomysial IgA Ab Titer TEST NOT PERFORMED Endomysial IgA Ab TEST NOT PERFORMED Tiss Transglutamin IgA 1 Celiac Disease Interp See note Attending/Attestation - Attestation I have personally seen and examined this patient.: Yes I have fully participated in the care of the patient.: Yes I have reviewed all pertinent clinical information: Yes Notes (Text): 09/12/17 03:32 Patient was seen when she was in the ER . Agree with history, physical examination, assessment and plan.
[2017-09-08] MEDS ORDERED: Sodium Chloride 0.9% 1,000 ML IV SCH (22:30)
[2017-09-08 23:37] VITALS: BMI 34.4
--- NOTE | 2017-09-09 04:43 | CP.PCM.CON ---
<Ras Pearce - Last Filed: 09/09/17 11:15> History of Present Illness - History of Present Illness History of Present Illness: Subjective: CC: Diarrhea HPI: Patient is a 71 year old female with a past medical history of hypertension, hyperlipidemia, GERD, vertigo and colitis who was admitted for evaluation and treatment of diarrhea exacerbation with associated lower abdominal discomfort. Patient admits to baseline nonbloody diarrhea for the past 2 months. However she admits to an exacerbation of the diarrhea with 20 to 30 episodes of nonbloody, watery diarrhea daily for the past few days without any provoking event. Denies recent travel and sick contacts. It is important to note that the patient underwent a EGD/colonscopy in April 2017 which revealed no acute findings however histology suggested celiac disease. Patient admits to adhering to gluten free diet thereafter. Of note, patient's CT on 08/2017 showed findings suspicious for potential pancolitis. Patient admits that she was noncompliant with her outpatient antibiotics. Additionally, the patient was seen in the outpatient office in July [address] of the ab/pelvis was recommended to rule out lymphoma, colitis amongst other intraabdominal pathology, in the setting of progressive with loss with abdominal pain/vomiting. Patient was previously evaluated in the emergency room on 09/06/17 for similar symptoms however she left against medical advice. The abdomen/pelvis CT completed on showed findings suggestive of enteritis without an obstructing lesion. Since admission the patient admits to continued watery diarrhea with associated generalized weakness. Approximates 6 watery bowel movements overnight. She is tolerating a liquid diet. Denies fever, chills, chest pain, N/V, and urinary symptoms. 12 point ROS negative except as indicated in HPI PMHx: hypertension, hyperlipidemia, GERD, vertigo and colitis PSHx: appendicitis, hemorrhoidectomy, cataract surgery Social History: Denies ETOH, tobacco, and illicit drug use; Lives at home with family Allergies: Aspirin, Gluten allergy, sulfa Meds: Norvasc, pepcid, simvastatin Past Patient History - Infectious Disease Hx of Infectious Diseases: None - Tetanus Immunizations Tetanus Immunization: Unknown - Past Medical History & Family History Past Medical History?: Yes - Past Social History Smoking Status: Never Smoked - CARDIAC Hx Cardiac Disorders: Yes Hx Hypertension: Yes - PULMONARY Hx Respiratory Disorders: No - NEUROLOGICAL Hx Neurological Disorder: No - HEENT Hx HEENT Problems: Yes Hx Cataracts: Yes - RENAL Hx Chronic Kidney Disease: No - ENDOCRINE/METABOLIC Hx Endocrine Disorders: No - HEMATOLOGICAL/ONCOLOGICAL Hx Blood Disorders: No - INTEGUMENTARY Hx Dermatological Problems: No - MUSCULOSKELETAL/RHEUMATOLOGICAL Hx Falls: No - GASTROINTESTINAL Hx Gastrointestinal Disorders: Yes Other/Comment: Celiac Disease - GENITOURINARY/GYNECOLOGICAL Hx Genitourinary Disorders: No - PSYCHIATRIC Hx Emotional Abuse: No Hx Physical Abuse: No Hx Substance Use: No - SURGICAL HISTORY Hx Eye Surgery: Yes - ANESTHESIA Hx Anesthesia: Yes Hx Anesthesia Reactions: No Hx Malignant Hyperthermia: No Meds Allergies/Adverse Reactions: Allergies Allergy/AdvReac Type Severity Reaction Status Date / Time aspirin Allergy ITCHING Verified 09/06/17 10:26 gluten Allergy DIARRHEA Verified 09/06/17 10:26 - Medications Medications: Current Medications Amlodipine Besylate (Norvasc) 2.5 mg PO DAILY [facility] Atorvastatin Calcium (Lipitor) 10 mg PO DIN [facility] Heparin Sodium (Porcine) (Heparin) 5,000 units SC Q8 [facility] PRN Reason: Protocol Sodium Chloride (Sodium Chloride 0.9%) 1,000 mls @ 100 mls/hr IV .Q10H [facility] Last Admin: 09/09/17 00:17 Dose: 100 mls/hr Ondansetron HCl (Zofran Inj) 4 mg IVP Q4H PRN PRN Reason: Nausea/Vomiting Pantoprazole Sodium (Protonix Inj) 40 mg IVP DAILY [facility] Physical Exam - Constitutional Appears: Well, Non-toxic, No Acute Distress - Head Exam Head Exam: ATRAUMATIC, NORMAL INSPECTION - Eye Exam Eye Exam: EOMI - ENT Exam ENT Exam: Mucous Membranes Dry - Respiratory Exam Respiratory Exam: NORMAL BREATHING PATTERN - Cardiovascular Exam Cardiovascular Exam: +S1, +S2 - GI/Abdominal Exam GI & Abdominal Exam: Hyperactive Bowel Sounds, Soft. absent: Distended, Guarding, Organomegaly, Rebound, Rigid - Extremities Exam Extremities exam: Positive for: normal inspection. Negative for: tenderness - Neurological Exam Neurological exam: Alert - Psychiatric Exam Psychiatric exam: Normal Affect, Normal Mood Results - Vital Signs Recent Vital Signs: Last Vital Signs Temp 98 F 09/08/17 23:04 Pulse 64 09/08/17 23:04 Resp 20 09/08/17 23:04 BP 103/67 09/08/17 23:04 Pulse Ox 95 05/06/18 23:04 - Labs Result Diagrams: 09/09/17 07:00 09/09/17 07:00 Assessment & Plan - Assessment and Plan (Free Text) Plan: Assessment and Plan: Patient is a 71 year old female with a past medical history of hypertension, hyperlipidemia, GERD, vertigo and colitis who was admitted for evaluation and treatment of diarrhea exacerbation with associated lower abdominal discomfort. The abdomen/pelvis CT completed on 09/06/17 showed findings suggestive of enteritis without an obstructing lesion. Started on IVF NS, cipro, and flagyl. Diarrhea - likely secondary to persistent colitis secondary to medication noncompliance - continue with cipro/flagyl/ IVF NS @ 130 - C. Diff, stool studies, celiac serology ordered and pending- will follow up Thank you for the opportunity to participate in the care for this patient. Will we continue to follow with you. Patient seen, case reviewed with, and plan approved by attending physician, Dr. Saucedo. <Robby Saucedo - Last Filed: 09/09/17 12:29> Meds - Medications Medications: Current Medications Amlodipine Besylate (Norvasc) 2.5 mg PO DAILY [facility] Last Admin: 09/09/17 09:38 Dose: Not Given Atorvastatin Calcium (Lipitor) 10 mg PO DIN [facility] Heparin Sodium (Porcine) (Heparin) 5,000 units SC Q8 [facility] PRN Reason: Protocol Last Admin: 09/09/17 05:39 Dose: 5,000 units Sodium Chloride (Sodium Chloride 0.9%) 1,000 mls @ 130 mls/hr IV .Q7H42M [facility] Metronidazole (Flagyl) 500 mg in 100 mls @ 100 mls/hr IVPB Q8 [facility] PRN Reason: Protocol Ciprofloxacin (Cipro 400mg/200ml Dsw) 400 mg in 200 mls @ 133.3 mls/hr IVPB Q12 [facility] PRN Reason: Protocol Stop: 09/09/17 13:16 Results - Vital Signs Recent Vital Signs: Last Vital Signs Temp 97.8 F 09/09/17 08:13 Pulse 66 09/09/17 08:13 Resp 19 09/09/17 08:13 BP 93/52 L 09/09/17 09:38 Pulse Ox 97 09/09/17 08:13 - Labs Result Diagrams: 09/09/17 07:00 09/09/17 07:00 Labs: Laboratory Results - last 24 hr 09/09/17 09/09/17 09/09/17 07:00 07:00 07:00 WBC 3.9 L D RBC 4.21 Hgb 11.1 L Hct 35.6 L MCV 84.6 MCH 26.4 MCHC 31.2 RDW 15.9 H Plt Count 327 MPV 10.3 Gran % 36.6 L Lymph % (Auto) 50.9 H Waller % (Auto) 9.6 H Eos % (Auto) 2.6 Baso % (Auto) 0.3 Gran # 1.42 Lymph # (Auto) 2.0 Waller # (Auto) 0.4 Eos # (Auto) 0.1 Baso # (Auto) 0.01 APTT 32.1 Sodium 147 Potassium 4.1 Chloride 116 H Carbon Dioxide 21 Anion Gap 15 BUN 8 Creatinine 0.6 L Est GFR ( Amer) > 60 Est GFR (Non-Af Amer) > 60 Random Glucose 89 Calcium 8.4 Total Bilirubin 0.2 AST 34 ALT 70 H Alkaline Phosphatase 62 Total Protein 5.9 Albumin 3.1 Globulin 2.9 Albumin/Globulin Ratio 1.1 Attending/Attestation - Attestation I have personally seen and examined this patient.: Yes I have fully participated in the care of the patient.: Yes I have reviewed all pertinent clinical information: Yes Notes (Text): 09/09/17 12:19 I have seen and examined patient with GI fellow and medical cash poster. Agree with above documentation with the following additions. In brief, this is a 71 year old female with history of obesity (BMI 34), HTN, hyperlipidemia who presents to hospital with complaint of worsening diarrhea. She was seen as outpatient last month with similar complaints, CT imaging at that time revealed judge colitis and she was started on oral antibiotic therapy however only completed 3 days worth of medication due to nausea side effect. Previously she was having frequent bowel movements (up to 6-7 episodes daily) though over the past 5 days her symptoms have become significantly worse. She endorses having up to 15 loose non-bloody bowel movements daily along with intermittent bilateral lower quadrant abdominal pain. She denies sick contacts, recent travel, or recent antibiotic use aside from brief outpatient regimen. She had a colonoscopy in April 2017 which was unremarkable. She also reports a prior history of celiac disease which was not confirmed on bloodwork serology or EGD histological specimens. Family history: reviewed, patient denies history of GI malignancy Additional physical exam: Skin: warm, dry, no suspicious lesions present Obesity HTN Hyperlipidemia Diarrhea - unexplained CT imaging from few days ago reviewed by me showing non-specific enteritis, though study was performed without use of contrast - Liquid diet as tolerated - Obtain stool studies (culture, O/P, c-difficile) - Continue with empiric antibiotic therapy - Obtain celiac disease serologies - Obtain fecal elastase given potential of pancreatic insufficiency in patient with long standing symptoms - If no improvement in terms of bowel frequency over next 24-48 hours, would suggest repeat cross sectional imaging with contrast - Will continue to monitor patient clinical course
[2017-09-09 07:36] LABS: BASO # 0.01 K/mm3 (0.0-2.0); BASO % 0.3 % (0.0-3.0); EOS # 0.1 (0.0-0.7); EOS % 2.6 % (1.5-5.0); GRAN # 1.42 (1.4-6.5); GRAN % 36.6 % (50.0-68.0); HEMOGLOBIN 11.1 g/dL (12.0-16.0); LYMPH % 50.9 % (22.0-35.0); MEAN CELL VOLUME 84.6 fl (80.0-105.0); MEAN CORPUSCULAR HEMOGLOBIN 26.4 pg (25.0-35.0); MEAN CORPUSCULAR HGB CONC 31.2 g/dl (31.0-37.0); MEAN PLATELET VOLUME 10.3 fl (7.0-11.0); MONO # 0.4 (0.1-0.6); MONO % 9.6 % (1.0-6.0); RBC 4.21 10^6/uL (3.5-6.1); RED CELL DISTRIBUTION WIDTH 15.9 % (11.5-14.5); WHITE BLOOD COUNT 3.9 10^3/ul (4.5-11.0)
[2017-09-09 07:47] LABS: ALB/GLOB RATIO 1.1 (1.1-1.8); ALBUMIN 3.1 g/dL (3.0-4.8); ALT/SGPT 70 U/L (7-56); AST/SGOT 34 U/L (14-36); BLOOD UREA NITROGEN 8 mg/dL (7-21); CALCIUM 8.4 mg/dL (8.4-10.5); GFR AFRICAN-AMERICAN > 60; GFR NON-AFRICAN AMERICAN > 60
[2017-09-09] MEDS ORDERED: Ciprofloxacin 400mg/200ml D5W 400 MG/200 ML BAG IVPB SCH ×2 (10:00→11:45)
--- NOTE | 2017-09-09 11:37 | CP.PCM.PN ---
<Malik Singletary - Last Filed: 09/09/17 11:31> Subjective - Date & Time of Evaluation Date of Evaluation: 09/09/17 Time of Evaluation: 11:31 - Subjective Subjective: Patient seen and examined at bedside. Still complaining of multiple episodes of diarrhea (nonbloody) overnight with no diarrhea since 9am. She denies any nausea or vomiting. No chest pain or SOB. No fevers or chills. Complaining of mild abdominal pain located in the left flank. Tolerating diet. No other complaints at this time. Objective - Vital Signs/Intake and Output Vital Signs (last 24 hours): Temp Pulse Resp BP Pulse Ox 97.8 F 66 19 93/52 L 97 09/09/17 08:13 09/09/17 08:13 09/09/17 08:13 09/09/17 09:38 09/09/17 08:13 - Medications Medications: Current Medications Amlodipine Besylate (Norvasc) 2.5 mg PO DAILY [facility] Last Admin: 09/09/17 09:38 Dose: Not Given Atorvastatin Calcium (Lipitor) 10 mg PO DIN [facility] Heparin Sodium (Porcine) (Heparin) 5,000 units SC Q8 [facility] PRN Reason: Protocol Last Admin: 09/09/17 05:39 Dose: 5,000 units Sodium Chloride (Sodium Chloride 0.9%) 1,000 mls @ 130 mls/hr IV .Q7H42M [facility] Ciprofloxacin (Cipro 400mg/200ml Dsw) 400 mg in 200 mls @ 133.3 mls/hr IVPB Q12 [facility] PRN Reason: Protocol Stop: 09/09/17 11:31 Last Admin: 09/09/17 09:38 Dose: 133.3 mls/hr Metronidazole (Flagyl) 500 mg in 100 mls @ 100 mls/hr IVPB Q8 [facility] PRN Reason: Protocol - Labs Labs: 09/09/17 07:00 09/09/17 07:00 PT 13.0 SECONDS (9.4-12.5) H 09/08/17 19:00 INR 1.14 (0.93-1.08) H 09/08/17 19:00 APTT 32.1 Seconds (25.1-36.5) 09/09/17 07:00 - Constitutional Appears: Well - Head Exam Head Exam: ATRAUMATIC, NORMAL INSPECTION, NORMOCEPHALIC - Eye Exam Eye Exam: EOMI, Normal appearance, PERRL Pupil Exam: NORMAL ACCOMODATION, PERRL - ENT Exam ENT Exam: Mucous Membranes Moist, Normal Exam - Neck Exam Neck Exam: Full ROM, Normal Inspection. absent: Lymphadenopathy - Respiratory Exam Respiratory Exam: Clear to Ausculation Bilateral, NORMAL BREATHING PATTERN - Cardiovascular Exam Cardiovascular Exam: REGULAR RHYTHM, +S1, +S2. absent: Murmur - GI/Abdominal Exam GI & Abdominal Exam: Soft, Normal Bowel Sounds. absent: Tenderness - Extremities Exam Extremities Exam: Full ROM, Normal Capillary Refill, Normal Inspection. absent : Joint Swelling, Pedal Edema - Back Exam Back Exam: NORMAL INSPECTION - Neurological Exam Neurological Exam: Alert, Awake, CN II-XII Intact, Normal Gait, Oriented x3 - Psychiatric Exam Psychiatric exam: Normal Affect, Normal Mood - Skin Skin Exam: Dry, Intact, Normal Color, Warm Assessment and Plan (1) Celiac disease Assessment & Plan: Diarrhea most likely 2/2 to medication/diet noncompliance GI ([facility]) Cipro 400 IV Q12 Flagyl 500 IV Q8 NS @ 130 Liquid Diet F/U Giardia, Stool electrolytes, Celiac disease panel, stool culture, cdiff toxin, ova and parasites, fecal leukocytes Status: Chronic (2) Essential hypertension Assessment & Plan: Norvasc 2.5 PO QD Status: Chronic (3) Hyperlipemia Assessment & Plan: Lipitor 10 PO HS Status: Acute (4) Prophylactic measure Assessment & Plan: Heparin SC Q8 [facility] No GI PPX indicated at this time Status: Acute <Julian Guillen - Last Filed: 09/09/17 17:21> Objective - Vital Signs/Intake and Output Vital Signs (last 24 hours): Temp Pulse Resp BP Pulse Ox 98.1 F 61 20 112/71 96 09/09/17 17:10 09/09/17 17:10 09/09/17 17:10 09/09/17 17:10 09/09/17 17:10 Intake and Output: 09/09/17 09/09/17 06:59 18:59 Intake Total 600 Balance 600 - Medications Medications: Current Medications Amlodipine Besylate (Norvasc) 2.5 mg PO DAILY [facility] Last Admin: 09/09/17 09:38 Dose: Not Given Atorvastatin Calcium (Lipitor) 10 mg PO DIN [facility] Heparin Sodium (Porcine) (Heparin) 5,000 units SC Q8 [facility] PRN Reason: Protocol Last Admin: 09/09/17 14:37 Dose: 5,000 units Sodium Chloride (Sodium Chloride 0.9%) 1,000 mls @ 130 mls/hr IV .Q7H42M [facility] Metronidazole (Flagyl) 500 mg in 100 mls @ 100 mls/hr IVPB Q8 [facility] PRN Reason: Protocol Last Admin: 09/09/17 14:38 Dose: 100 mls/hr - Labs Labs: 09/09/17 07:00 09/09/17 07:00 PT 13.0 SECONDS (9.4-12.5) H 09/08/17 19:00 INR 1.14 (0.93-1.08) H 09/08/17 19:00 APTT 32.1 Seconds (25.1-36.5) 09/09/17 07:00 Attending/Attestation - Attestation I have personally seen and examined this patient.: Yes I have fully participated in the care of the patient.: Yes I have reviewed all pertinent clinical information, including history, physical exam and plan: Yes Notes (Text): I have seen and examined the patient at bedside. Agree with the above note. GI on board. Continue clear liquid diet and IV antibiotics. Discussed in detail with the patient and her daughter.
--- NOTE | 2017-09-09 14:08 | CARD ---
APPROVED REPORT EKG Measurement Heart [id number] <Conclusion> Normal sinus rhythm Moderate voltage criteria for LVH, may be normal variant Borderline ECG
[2017-09-09] MEDS: metroNIDAZOLE IV 500 mg/100 ml 500 MG/100 ML BAG IVPB SCH ×2 (14:38→21:48)
[2017-09-09] MEDS: Sodium Chloride 0.9% 1,000 ML IV SCH (21:49)
--- NOTE | 2017-09-10 04:46 | CP.PCM.PN ---
<Ras Pearce - Last Filed: 09/10/17 11:21> Subjective - Date & Time of Evaluation Date of Evaluation: 09/10/17 Time of Evaluation: 07:15 - Subjective Subjective: Subjective: Patient seen and examined. Admits to 3 nonbloody, loose, watery bowel movements overnight. Admits to baseline lower abdominal discomfort. Denies fever, chills, chest pain, SOB, N/V, and urinary symptoms. 12 point ROS negative except as indicated in HPI Physical Examination: - Constitutional Appears: Well, Non-toxic, No Acute Distress - Head Exam Head Exam: ATRAUMATIC, NORMAL INSPECTION - Eye Exam Eye Exam: EOMI - ENT Exam ENT Exam: Mucous Membranes Dry - Respiratory Exam Respiratory Exam: NORMAL BREATHING PATTERN - Cardiovascular Exam Cardiovascular Exam: +S1, +S2 - GI/Abdominal Exam GI & Abdominal Exam: , Soft, tender to palpation lower quadrants; absent: Distended, Guarding, Organomegaly, Rebound, Rigid - Extremities Exam Extremities exam: Positive for: normal inspection. Negative for: tenderness - Neurological Exam Neurological exam: Alert - Psychiatric Exam Psychiatric exam: Normal Affect, Normal Mood Assessment and Plan: Patient is a 71 year old female with a past medical history of hypertension, hyperlipidemia, GERD, vertigo and colitis who was admitted for evaluation and treatment of diarrhea exacerbation with associated lower abdominal discomfort. The abdomen/pelvis CT completed on 09/06/17 showed findings suggestive of enteritis without an obstructing lesion. Previous diagnosis of colitis with outpatient antibiotic noncompliance. Patient is on IVF NS, cipro, and flagyl. Decreased bowel movement frequency noted. Obesity HTN Hyperlipidemia Diarrhea - unexplained enteritis/colitis - CTA of abdomen and pelvis ordered and pending - calprotectin ordered and pending- rule out IBD - advanced to altered GI/hepatic diet - C-difficile negative - Continue with cipro and flagyl - celiac disease serologies, ova/parasite, giardia, stool culture ordered and pending - If no improvement in terms of bowel frequency in next 48 hours repeat cross sectional imaging with contrast Patient seen, case reviewed with, and plan approved by attending physician, Dr. Lowe. Objective - Vital Signs/Intake and Output Vital Signs (last 24 hours): Temp Pulse Resp BP Pulse Ox 98.1 F 61 20 112/71 96 09/09/17 17:10 09/09/17 17:10 09/09/17 17:10 09/09/17 17:10 09/09/17 17:10 Intake and Output: 09/09/17 09/10/17 18:59 06:59 Intake Total 600 360 Balance 600 360 - Medications Medications: Current Medications Amlodipine Besylate (Norvasc) 2.5 mg PO DAILY [facility] Last Admin: 09/09/17 09:38 Dose: Not Given Atorvastatin Calcium (Lipitor) 10 mg PO DIN [facility] Last Admin: 09/09/17 17:55 Dose: 10 mg Heparin Sodium (Porcine) (Heparin) 5,000 units SC Q8 [facility] PRN Reason: Protocol Last Admin: 09/09/17 21:48 Dose: 5,000 units Sodium Chloride (Sodium Chloride 0.9%) 1,000 mls @ 130 mls/hr IV .Q7H42M [facility] Last Admin: 09/09/17 21:49 Dose: 130 mls/hr Metronidazole (Flagyl) 500 mg in 100 mls @ 100 mls/hr IVPB Q8 [facility] PRN Reason: Protocol Last Admin: 09/09/17 21:48 Dose: 100 mls/hr - Labs Labs: 09/09/17 07:00 09/09/17 07:00 PT 13.0 SECONDS (9.4-12.5) H 09/08/17 19:00 INR 1.14 (0.93-1.08) H 09/08/17 19:00 APTT 32.1 Seconds (25.1-36.5) 09/09/17 07:00 <Americo Lowe - Last Filed: 09/10/17 12:55> Objective - Vital Signs/Intake and Output Vital Signs (last 24 hours): Temp Pulse Resp BP Pulse Ox 97.7 F 58 L 18 116/79 95 09/10/17 08:10 09/10/17 08:10 09/10/17 08:10 09/10/17 09:09 09/10/17 08:10 Intake and Output: 09/10/17 09/10/17 06:59 18:59 Intake Total 760 Balance 760 - Medications Medications: Current Medications Amlodipine Besylate (Norvasc) 2.5 mg PO DAILY [facility] Last Admin: 09/10/17 09:09 Dose: 2.5 mg Atorvastatin Calcium (Lipitor) 10 mg PO DIN [facility] Last Admin: 09/09/17 17:55 Dose: 10 mg Heparin Sodium (Porcine) (Heparin) 5,000 units SC Q8 [facility] PRN Reason: Protocol Last Admin: 09/10/17 05:54 Dose: 5,000 units Sodium Chloride (Sodium Chloride 0.9%) 1,000 mls @ 130 mls/hr IV .Q7H42M [facility] Last Admin: 09/10/17 05:59 Dose: 130 mls/hr Metronidazole (Flagyl) 500 mg in 100 mls @ 100 mls/hr IVPB Q8 [facility] PRN Reason: Protocol Last Admin: 09/10/17 05:54 Dose: 100 mls/hr Ceftriaxone Sodium (Rocephin 1 Gram Ivpb) 1 gm in 100 mls @ 100 mls/hr IVPB DAILY [facility] PRN Reason: Protocol - Labs Labs: 09/10/17 06:00 09/10/17 06:00 PT 13.0 SECONDS (9.4-12.5) H 09/08/17 19:00 INR 1.14 (0.93-1.08) H 09/08/17 19:00 APTT 32.1 Seconds (25.1-36.5) 09/09/17 07:00 Attending/Attestation - Attestation I have personally seen and examined this patient.: Yes I have fully participated in the care of the patient.: Yes I have reviewed all pertinent clinical information, including history, physical exam and plan: Yes Notes (Text): 09/10/17 12:54 71 year old female with abdominal pain, found to have enteritis on CT. Reviewed imaging. Calcifications in SMA. r/o chronic mesenteric ischemia. Recommend CT angio. R/o infectious enteritis with stool studies. Check fecal calprotectin to eval for ibd. Continue IVF and abx. Will follow.
[2017-09-10] MEDS: metroNIDAZOLE IV 500 mg/100 ml 500 MG/100 ML BAG IVPB SCH ×3 (05:54→22:00)
[2017-09-10] MEDS: Sodium Chloride 0.9% 1,000 ML IV SCH ×2 (05:59→19:31)
[2017-09-10 06:21] LABS: BASO # 0.01 K/mm3 (0.0-2.0); BASO % 0.2 % (0.0-3.0); EOS # 0.2 (0.0-0.7); GRAN # 1.5 (1.4-6.5); GRAN % 35.4 % (50.0-68.0); LYMPH # 2.2 (1.2-3.4); LYMPH % 51.7 % (22.0-35.0); MEAN CELL VOLUME 84.6 fl (80.0-105.0); MEAN CORPUSCULAR HEMOGLOBIN 26.4 pg (25.0-35.0); MEAN CORPUSCULAR HGB CONC 31.2 g/dl (31.0-37.0); MEAN PLATELET VOLUME 10.7 fl (7.0-11.0); MONO # 0.4 (0.1-0.6); MONO % 8.7 % (1.0-6.0); RBC 4.55 10^6/uL (3.5-6.1); WHITE BLOOD COUNT 4.2 10^3/ul (4.5-11.0)
[2017-09-10 06:46] LABS: ALB/GLOB RATIO 1.2 (1.1-1.8); ALBUMIN 3.5 g/dL (3.0-4.8); ALT/SGPT 63 U/L (7-56); AST/SGOT 32 U/L (14-36); BLOOD UREA NITROGEN 4 mg/dL (7-21); CALCIUM 8.9 mg/dL (8.4-10.5); GFR AFRICAN-AMERICAN > 60; GFR NON-AFRICAN AMERICAN > 60
[2017-09-10] MEDS ORDERED: Ciprofloxacin 400mg/200ml D5W 400 MG/200 ML BAG IVPB SCH (10:00)
--- NOTE | 2017-09-10 10:55 | CP.PCM.PN ---
<Malik Singletary - Last Filed: 09/10/17 10:48> Subjective - Date & Time of Evaluation Date of Evaluation: 09/10/17 Time of Evaluation: 10:49 - Subjective Subjective: Patient seen and examined at bedside. Still complaining of Left sided abdominal pain. Denies any nausea or vomiting at this time. States she had three episodes of nonbloody diarrhea overnight. Requesting a regular diet. May have history of lactose intolerance as she said she is not supposed to have milk but she attributes this to her instruction to avoid gluten. Milk does not contain gluten. Objective - Vital Signs/Intake and Output Vital Signs (last 24 hours): Temp Pulse Resp BP Pulse Ox 97.7 F 58 L 18 116/79 95 09/10/17 08:10 09/10/17 08:10 09/10/17 08:10 09/10/17 09:09 09/10/17 08:10 Intake and Output: 09/10/17 09/10/17 06:59 18:59 Intake Total 760 Balance 760 - Medications Medications: Current Medications Amlodipine Besylate (Norvasc) 2.5 mg PO DAILY [facility] Last Admin: 09/10/17 09:09 Dose: 2.5 mg Atorvastatin Calcium (Lipitor) 10 mg PO DIN [facility] Last Admin: 09/09/17 17:55 Dose: 10 mg Heparin Sodium (Porcine) (Heparin) 5,000 units SC Q8 [facility] PRN Reason: Protocol Last Admin: 09/10/17 05:54 Dose: 5,000 units Sodium Chloride (Sodium Chloride 0.9%) 1,000 mls @ 130 mls/hr IV .Q7H42M [facility] Last Admin: 09/10/17 05:59 Dose: 130 mls/hr Metronidazole (Flagyl) 500 mg in 100 mls @ 100 mls/hr IVPB Q8 [facility] PRN Reason: Protocol Last Admin: 09/10/17 05:54 Dose: 100 mls/hr Ciprofloxacin (Cipro 400mg/200ml Dsw) 400 mg in 200 mls @ 133.3 mls/hr IVPB Q12 [facility] PRN Reason: Protocol Stop: 09/10/17 11:31 Last Admin: 09/10/17 09:12 Dose: 133.3 mls/hr - Labs Labs: 09/10/17 06:00 09/10/17 06:00 PT 13.0 SECONDS (9.4-12.5) H 09/08/17 19:00 INR 1.14 (0.93-1.08) H 09/08/17 19:00 APTT 32.1 Seconds (25.1-36.5) 09/09/17 07:00 - Constitutional Appears: Well - Head Exam Head Exam: ATRAUMATIC, NORMAL INSPECTION, NORMOCEPHALIC - Eye Exam Eye Exam: EOMI, Normal appearance, PERRL Pupil Exam: NORMAL ACCOMODATION, PERRL - ENT Exam ENT Exam: Mucous Membranes Moist, Normal Exam - Neck Exam Neck Exam: Full ROM, Normal Inspection. absent: Lymphadenopathy - Respiratory Exam Respiratory Exam: Clear to Ausculation Bilateral, NORMAL BREATHING PATTERN - Cardiovascular Exam Cardiovascular Exam: REGULAR RHYTHM, +S1, +S2. absent: Murmur - GI/Abdominal Exam GI & Abdominal Exam: Soft, Normal Bowel Sounds. absent: Tenderness - Extremities Exam Extremities Exam: Full ROM, Normal Capillary Refill, Normal Inspection. absent : Joint Swelling, Pedal Edema - Back Exam Back Exam: NORMAL INSPECTION - Neurological Exam Neurological Exam: Alert, Awake, CN II-XII Intact, Normal Gait, Oriented x3 - Psychiatric Exam Psychiatric exam: Normal Affect, Normal Mood - Skin Skin Exam: Dry, Intact, Normal Color, Warm Assessment and Plan - Assessment and Plan (Free Text) Assessment: (1) Celiac disease Assessment & Plan: Diarrhea most likely 2/2 to medication/diet noncompliance GI ([facility]) Cipro 400 IV Q12 Flagyl 500 IV Q8 NS @ 130 Regular diet w/o gluten and lactose F/U Giardia, Stool electrolytes, Celiac disease panel, stool culture, ova and parasites, pancreatic elactase Cdiff negative Fecal leuks negative F/U abdominal angio Status: Chronic (2) Essential hypertension Assessment & Plan: Norvasc 2.5 PO QD Status: Chronic (3) Hyperlipemia Assessment & Plan: Lipitor 10 PO HS Status: Acute (4) Prophylactic measure Assessment & Plan: Heparin SC Q8 SCD No GI PPX indicated at this time Status: Acute <Julian Guillen - Last Filed: 09/10/17 16:10> Objective - Vital Signs/Intake and Output Vital Signs (last 24 hours): Temp Pulse Resp BP Pulse Ox 97.7 F 58 L 18 116/79 95 09/10/17 08:10 09/10/17 08:10 09/10/17 08:10 09/10/17 09:09 09/10/17 08:10 Intake and Output: 09/10/17 09/10/17 06:59 18:59 Intake Total 760 Balance 760 - Medications Medications: Current Medications Amlodipine Besylate (Norvasc) 2.5 mg PO DAILY [facility] Last Admin: 09/10/17 09:09 Dose: 2.5 mg Atorvastatin Calcium (Lipitor) 10 mg PO DIN [facility] Last Admin: 09/09/17 17:55 Dose: 10 mg Heparin Sodium (Porcine) (Heparin) 5,000 units SC Q8 [facility] PRN Reason: Protocol Last Admin: 09/10/17 15:00 Dose: 5,000 units Sodium Chloride (Sodium Chloride 0.9%) 1,000 mls @ 130 mls/hr IV .Q7H42M [facility] Last Admin: 09/10/17 05:59 Dose: 130 mls/hr Metronidazole (Flagyl) 500 mg in 100 mls @ 100 mls/hr IVPB Q8 [facility] PRN Reason: Protocol Last Admin: 09/10/17 15:00 Dose: 100 mls/hr Ceftriaxone Sodium (Rocephin 1 Gram Ivpb) 1 gm in 100 mls @ 100 mls/hr IVPB DAILY [facility] PRN Reason: Protocol Last Admin: 09/10/17 13:00 Dose: 100 mls/hr - Labs Labs: 09/10/17 06:00 09/10/17 06:00 PT 13.0 SECONDS (9.4-12.5) H 09/08/17 19:00 INR 1.14 (0.93-1.08) H 09/08/17 19:00 APTT 32.1 Seconds (25.1-36.5) 09/09/17 07:00 Attending/Attestation - Attestation I have personally seen and examined this patient.: Yes I have fully participated in the care of the patient.: Yes I have reviewed all pertinent clinical information, including history, physical exam and plan: Yes Notes (Text): I have seen and examined the patient at bedside. Agree with the above note. GI on board. Will advance the diet as tolerated and continue IV antibiotics. Discussed in detail with the patient and the son over the phone. Follow up on stool studies. CT angio abdomen pending. Upon discharge patient will follow up with Dr Montanez.
[2017-09-10] MEDS: cefTRIAXone 1 gm 1 GM/100 ML BAG IVPB SCH (13:00)
[2017-09-10 16:57] VITALS: RESP 20
[2017-09-10] MEDS ORDERED: Iohexol 350 MG/100 ML VIAL ONE (17:15)
--- NOTE | 2017-09-10 17:59 | CT ---
PROCEDURE: CT Abdomen and Pelvis with contrast HISTORY: Left-sided abdominal pain. Diarrhea. Relevant medical history: Celiac disease COMPARISON: 08/05/2017 CT abdomen and pelvis. 09/06/2017 CT abdomen and pelvis. TECHNIQUE: Contrast dose: 100 cc Omnipaque 350 Radiation dose: Total exam DLP = 763.49 mGy-cm. This CT exam was performed using one or more of the following dose reduction techniques: Automated exposure control, adjustment of the mA and/or kV according to patient size, and/or use of iterative reconstruction technique. FINDINGS: LOWER THORAX: Unremarkable. LIVER: Unremarkable. No gross lesion or ductal dilatation. GALLBLADDER AND BILE DUCTS: Unremarkable. PANCREAS: Unremarkable. No gross lesion or ductal dilatation. SPLEEN: Unremarkable. ADRENALS: Unremarkable. No mass. KIDNEYS AND URETERS: Unremarkable. No hydronephrosis. No solid mass. VASCULATURE: Unremarkable. No aortic aneurysm. BOWEL: Dilated small bowel proximally extends into the pelvis, there is no focal point of obstruction, intussusception or closed loop obstruction. Findings are consistent with enteritis. APPENDIX: No abnormalities to suggest acute appendicitis. No right lower quadrant inflammatory processes identified. PERITONEUM: Unremarkable. No free fluid. No free air. LYMPH NODES: Unremarkable. No enlarged lymph nodes. BLADDER: Unremarkable. REPRODUCTIVE: Unremarkable. BONES: No acute fracture. OTHER FINDINGS: None. IMPRESSION: Dilated proximal and mid small bowel extending into the pelvis without evidence of mechanical obstruction, volvulus, closed loop obstruction. Findings are consistent with enteritis. Similarly pattern of dilated loops of small bowel identified on the prior study 09/06/2017
[2017-09-11] MEDS: metroNIDAZOLE IV 500 mg/100 ml 500 MG/100 ML BAG IVPB SCH ×2 (05:39→13:42)
[2017-09-11 06:23] LABS: BASO # 0.02 K/mm3 (0.0-2.0); BASO % 0.4 % (0.0-3.0); EOS # 0.1 (0.0-0.7); EOS % 2.1 % (1.5-5.0); GRAN # 2.05 (1.4-6.5); HEMOGLOBIN 11.8 g/dL (12.0-16.0); LYMPH # 2.3 (1.2-3.4); LYMPH % 47.2 % (22.0-35.0); MEAN CELL VOLUME 82.9 fl (80.0-105.0); MEAN CORPUSCULAR HEMOGLOBIN 26.6 pg (25.0-35.0); MEAN CORPUSCULAR HGB CONC 32.1 g/dl (31.0-37.0); MEAN PLATELET VOLUME 10.4 fl (7.0-11.0); MONO # 0.4 (0.1-0.6); MONO % 7.3 % (1.0-6.0); RBC 4.44 10^6/uL (3.5-6.1); RED CELL DISTRIBUTION WIDTH 15.7 % (11.5-14.5); WHITE BLOOD COUNT 4.8 10^3/ul (4.5-11.0)
--- NOTE | 2017-09-11 06:54 | CP.PCM.PN ---
<Ras Pearce - Last Filed: 09/11/17 12:55> Subjective - Date & Time of Evaluation Date of Evaluation: 09/11/17 Time of Evaluation: 06:40 - Subjective Subjective: Subjective: Patient seen and examined. Admits to 1 nonbloody, loose, watery bowel movements overnight. Admits to baseline lower abdominal discomfort. Denies fever, chills, chest pain, SOB, N/V, and urinary symptoms. 12 point ROS negative except as indicated in HPI Physical Examination: - Constitutional Appears: Well, Non-toxic, No Acute Distress - Head Exam Head Exam: ATRAUMATIC, NORMAL INSPECTION - Eye Exam Eye Exam: EOMI - ENT Exam ENT Exam: Mucous Membranes Dry - Respiratory Exam Respiratory Exam: NORMAL BREATHING PATTERN - Cardiovascular Exam Cardiovascular Exam: +S1, +S2 - GI/Abdominal Exam GI & Abdominal Exam: , Soft, tender to palpation lower quadrants; absent: Distended, Guarding, Organomegaly, Rebound, Rigid - Extremities Exam Extremities exam: Positive for: normal inspection. Negative for: tenderness - Neurological Exam Neurological exam: Alert - Psychiatric Exam Psychiatric exam: Normal Affect, Normal Mood Assessment and Plan: Patient is a 71 year old female with a past medical history of hypertension, hyperlipidemia, GERD, vertigo and colitis who was admitted for evaluation and treatment of diarrhea exacerbation with associated lower abdominal discomfort. The abdomen/pelvis CT completed on 09/06/17 showed findings suggestive of enteritis without an obstructing lesion. Previous diagnosis of colitis with outpatient antibiotic noncompliance. Patient is on IVF NS, cipro, and flagyl. Decreased bowel movement frequency noted. Obesity HTN Hyperlipidemia Diarrhea - unexplained enteritis/colitis - CTA of abdomen and pelvis- Dilated proximal and mid small bowel extending into the pelvis without evidence of mechanical obstruction, volvulus, closed loop obstruction. Findings are consistent with enteritis. Similarly pattern of dilated loops of small bowel identified on the prior study - C-difficile negative - giardia negative - stool leukocyte negative - celiac disease serologies- negative - ova/parasite ordered and pending - stool culture ordered and pending - calprotectin ordered and pending- rule out IBD - recommend outpatient cipro and flagyl for a treatment total of 14 days - recommend probiotic on discharge - recommend outpatient follow up with Dr. Saucedo, appt date/time September 16, 2017 1 :45pm GI team will sign off at this time. Please reconsult if needed. Thank you for the opportunity to participate in the care of this patient. Patient seen, case discussed with, and plan approved by attending physician, Dr. Alfaro. Objective - Vital Signs/Intake and Output Vital Signs (last 24 hours): Temp Pulse Resp BP Pulse Ox 97.9 F 70 20 160/97 H 99 09/10/17 16:56 09/10/17 16:56 09/10/17 16:56 09/10/17 16:56 09/10/17 16:56 Intake and Output: 09/10/17 09/11/17 18:59 06:59 Intake Total 460 Balance 460 - Medications Medications: Current Medications Amlodipine Besylate (Norvasc) 2.5 mg PO DAILY [facility] Last Admin: 09/10/17 09:09 Dose: 2.5 mg Atorvastatin Calcium (Lipitor) 10 mg PO DIN [facility] Last Admin: 09/10/17 17:14 Dose: 10 mg Heparin Sodium (Porcine) (Heparin) 5,000 units SC Q8 [facility] PRN Reason: Protocol Last Admin: 09/11/17 05:40 Dose: 5,000 units Sodium Chloride (Sodium Chloride 0.9%) 1,000 mls @ 130 mls/hr IV .Q7H42M [facility] Last Admin: 09/10/17 19:31 Dose: 130 mls/hr Metronidazole (Flagyl) 500 mg in 100 mls @ 100 mls/hr IVPB Q8 [facility] PRN Reason: Protocol Last Admin: 09/11/17 05:39 Dose: 100 mls/hr Ceftriaxone Sodium (Rocephin 1 Gram Ivpb) 1 gm in 100 mls @ 100 mls/hr IVPB DAILY [facility] PRN Reason: Protocol Last Admin: 09/10/17 13:00 Dose: 100 mls/hr - Labs Labs: 09/11/17 06:00 09/10/17 06:00 PT 13.0 SECONDS (9.4-12.5) H 09/08/17 19:00 INR 1.14 (0.93-1.08) H 09/08/17 19:00 APTT 32.1 Seconds (25.1-36.5) 09/09/17 07:00 <Coco Alfaro - Last Filed: 09/12/17 11:14> Objective - Vital Signs/Intake and Output Vital Signs (last 24 hours): Temp Pulse Resp BP Pulse Ox 97.5 F L 59 L 20 129/83 97 09/11/17 06:00 09/11/17 06:00 09/11/17 06:00 09/11/17 10:02 09/11/17 06:00 - Labs Labs: 09/11/17 06:00 09/11/17 06:00 PT 13.0 SECONDS (9.4-12.5) H 09/08/17 19:00 INR 1.14 (0.93-1.08) H 09/08/17 19:00 APTT 32.1 Seconds (25.1-36.5) 09/09/17 07:00 Attending/Attestation - Attestation I have personally seen and examined this patient.: Yes I have fully participated in the care of the patient.: Yes I have reviewed all pertinent clinical information, including history, physical exam and plan: Yes Notes (Text): 09/12/17 11:12 71 year old female with a past medical history of hypertension, hyperlipidemia, GERD, vertigo and colitis who was admitted for evaluation and treatment of diarrhea exacerbation with associated lower abdominal discomfort. The abdomen/ pelvis CT completed on 09/06/17 showed findings suggestive of enteritis without an obstructing lesion. Previous diagnosis of colitis with outpatient antibiotic noncompliance. Patient is on cipro, and flagyl. Decreased bowel movement frequency noted. Can be discharged to home to finish two week antibiotics po cpurse and follow with outpatient GI Dr Saucedo for repeat colonoscopy and biopsy. GI team will sign off at this time. Please reconsult if needed. Thank you for the opportunity to participate in the care of this patient.
[2017-09-11 07:15] LABS: ALB/GLOB RATIO 1.1 (1.1-1.8); ALBUMIN 3.3 g/dL (3.0-4.8); ALT/SGPT 54 U/L (7-56); AST/SGOT 30 U/L (14-36); BLOOD UREA NITROGEN 7 mg/dL (7-21); CALCIUM 8.8 mg/dL (8.4-10.5); GFR AFRICAN-AMERICAN > 60; GFR NON-AFRICAN AMERICAN > 60
[2017-09-11] MEDS: cefTRIAXone 1 gm 1 GM/100 ML BAG IVPB SCH (10:02)
[2017-09-11 10:06] VITALS: BP 129/83
--- NOTE | 2017-09-11 13:32 | CP.PCM.DIS ---
<Malik Singletary - Last Filed: 09/11/17 13:16> Provider - Provider Date of Admission: 09/08/17 21:05 Attending physician: Julian Guillen MD Primary care physician: Oswaldo Montanez MD Consults: GI: Lewis Time Spent in preparation of Discharge (in minutes): 45 Hospital Course - Lab Results Lab Results: Micro Results 09/09/17 12:16 Stool Ova and Parasite Concentrate Exam - Final 09/09/17 12:16 Stool C. difficile Antigen & Toxin A,B (M - Final Most Recent Lab Values WBC 4.8 10^3/ul (4.5-11.0) 09/11/17 06:00 RBC 4.44 10^6/uL (3.5-6.1) 09/11/17 06:00 Hgb 11.8 g/dL (12.0-16.0) L 09/11/17 06:00 Hct 36.8 % (36.0-48.0) 09/11/17 06:00 MCV 82.9 fl (80.0-105.0) 09/11/17 06:00 MCH 26.6 pg (25.0-35.0) 09/11/17 06:00 MCHC 32.1 g/dl (31.0-37.0) 09/11/17 06:00 RDW 15.7 % (11.5-14.5) H 09/11/17 06:00 Plt Count 320 10^3/uL (120.0-450.0) 09/11/17 06:00 MPV 10.4 fl (7.0-11.0) 09/11/17 06:00 Gran % 43.0 % (50.0-68.0) L 09/11/17 06:00 Lymph % (Auto) 47.2 % (22.0-35.0) H 09/11/17 06:00 [place] % (Auto) 7.3 % (1.0-6.0) H 09/11/17 06:00 Eos % (Auto) 2.1 % (1.5-5.0) 09/11/17 06:00 Baso % (Auto) 0.4 % (0.0-3.0) 09/11/17 06:00 Gran # 2.05 (1.4-6.5) 09/11/17 06:00 Lymph # (Auto) 2.3 (1.2-3.4) 09/11/17 06:00 [place] # (Auto) 0.4 (0.1-0.6) 09/11/17 06:00 Eos # (Auto) 0.1 (0.0-0.7) 09/11/17 06:00 Baso # (Auto) 0.02 K/mm3 (0.0-2.0) 09/11/17 06:00 PT 13.0 SECONDS (9.4-12.5) H 09/08/17 19:00 INR 1.14 (0.93-1.08) H 09/08/17 19:00 APTT 32.1 Seconds (25.1-36.5) 09/09/17 07:00 pO2 45 mm/Hg (30-55) 09/08/17 19:10 VBG pH 7.27 (7.32-7.43) L 09/08/17 19:10 VBG pCO2 54.0 (40-60) 09/08/17 19:10 VBG HCO3 24.8 mmol/l (21-28) 09/08/17 19:10 VBG Total CO2 26.5 mmol.L (22-28) 09/08/17 19:10 VBG O2 Sat (Calc) 83.7 % (40-65) H 09/08/17 19:10 VBG Base Excess -2.9 mmol/L (0.0-2.0) L 09/08/17 19:10 VBG Potassium 3.8 mmol/L (3.6-5.2) 09/08/17 19:10 Sodium 139.0 mmol/L (132-148) 09/08/17 19:10 Chloride 110.0 mmol/L (98-107) H 09/08/17 19:10 Glucose 88 mg/dl (65-105) 09/08/17 19:10 Lactate 0.7 mmol/L (0.7-2.1) 09/08/17 19:10 FiO2 21.0 % 09/08/17 19:10 Sodium 146 mmol/L (132-148) 09/11/17 06:00 Potassium 3.7 mmol/L (3.6-5.0) 09/11/17 06:00 Chloride 110 mmol/L (98-107) H 09/11/17 06:00 Carbon Dioxide 24 mmol/L (21-33) 09/11/17 06:00 Anion Gap 16 (10-20) 09/11/17 06:00 BUN 7 mg/dL (7-21) 09/11/17 06:00 Creatinine 0.6 mg/dl (0.7-1.2) L 09/11/17 06:00 Est GFR ( Amer) > 60 09/11/17 06:00 Est GFR (Non-Af Amer) > 60 09/11/17 06:00 Random Glucose 98 mg/dL (70-110) 09/11/17 06:00 Calcium 8.8 mg/dL (8.4-10.5) 09/11/17 06:00 Phosphorus 2.7 mg/dL (2.5-4.5) 09/10/17 06:00 Magnesium 1.7 mg/dL (1.7-2.2) 09/10/17 06:00 Total Bilirubin 0.3 mg/dL (0.2-1.3) 09/11/17 06:00 AST 30 U/L (14-36) 09/11/17 06:00 ALT 54 U/L (7-56) 09/11/17 06:00 Alkaline Phosphatase 70 U/L (38-126) 09/11/17 06:00 Total Protein 6.3 g/dL (5.8-8.3) 09/11/17 06:00 Albumin 3.3 g/dL (3.0-4.8) 09/11/17 06:00 Globulin 3.0 gm/dL 09/11/17 06:00 Albumin/Globulin Ratio 1.1 (1.1-1.8) 09/11/17 06:00 Lipase 74 U/L (23-300) 09/08/17 19:00 Venous Blood Potassium 3.8 mmol/L (3.6-5.2) 09/08/17 19:10 Urine Color Yellow (YELLOW) 09/08/17 19:10 Urine Appearance Clear (CLEAR) 09/08/17 19:10 Urine pH 6.0 (4.7-8.0) 09/08/17 19:10 Ur Specific Jakin 1.020 (1.005-1.035) 09/08/17 19:10 Urine Protein Negative mg/dL (<30 mg/dL) 09/08/17 19:10 Urine Glucose (UA) Negative mg/dL (NEGATIVE) 09/08/17 19:10 Urine Ketones Negative mg/dL (NEGATIVE) 09/08/17 19:10 Urine Blood Small (NEGATIVE) H 09/08/17 19:10 Urine Nitrate Negative (NEGATIVE) 09/08/17 19:10 Urine Bilirubin Negative (NEGATIVE) 09/08/17 19:10 Urine Urobilinogen 0.2 E.U./dL (<1 E.U./dL) 09/08/17 19:10 Ur Leukocyte Esterase Negative Dragan/uL (NEGATIVE) 09/08/17 19:10 Urine RBC 15 - 20 /hpf (0-2) 09/08/17 19:10 Urine WBC 5 - 10 /hpf (0-6) 09/08/17 19:10 Ur Epithelial Cells 10 - 12 /hpf (0-5) 09/08/17 19:10 Urine Bacteria Small (NEG) 09/08/17 19:10 Stool Leukocytes, Qual Negative (NEGATIVE) 09/09/17 12:13 IgA 214 mg/dL (81-463) 09/09/17 07:30 Endomysial IgA Ab Titer TEST NOT PERFORMED 09/09/17 07:30 Endomysial IgA Ab TEST NOT PERFORMED 09/09/17 07:30 Tiss Transglutamin IgA 1 U/mL 09/09/17 07:30 Celiac Disease Interp See note 09/09/17 07:30 Giardia Antigen Not detected (Not Detected) 09/09/17 12:13 - Hospital Course Hospital Course: 71 year old female with past medical history of HTN, GERD, vertigo and celiac disease who presents with multiple episodes of diarrhea and abdominal discomfort. Patient is joined by her son who aids in the translation. Patient reports she has been having 20 to 30 episodes of diarrhea daily for the past few days. Patient reports diarrhea symptoms for the past 4-5 weeks. Patient was recently seen in [facility] for similar symptoms. At that time patient had abdominal CT showing pancolitis. Patient was recently treated with ciprofloxacin and metronidazole for symptoms of colitis. Patient reports not finishing her antibiotic regiment due to it causing nausea and vomiting as well as body aches. Patient reports that she tries to adhere to gluten free diet but that she finds it difficult. Patient was previously seen in ED 2 days ago for similar symptoms and was offered admission but had refused and left AMA according to records. Patient admits to chills, weakness, increasing fatigue at this time. She denies chest pain, shortness of breath, palpitations, nausea, vomiting, urinary symptoms, recent travel or sick contacts. Hospital Course: Patient previously had CT scan showing colits with a questionable history of celiacs disease. Upon further testing it is unlikely that she has this disease per GI. she was treated with cipro and flagyl. Diarrhea slowed but did not stop completely. Her belly pain was much resolved. She was discharged with PO flagyl and cipro and instructed to follow up with Dr. Saucedo in his office for colonoscopy. Discharge Exam - Head Exam Head Exam: ATRAUMATIC, NORMAL INSPECTION, NORMOCEPHALIC - Eye Exam Eye Exam: EOMI, Normal appearance, PERRL Pupil Exam: NORMAL ACCOMODATION, PERRL - Respiratory Exam Respiratory Exam: Clear to PA & Lateral, NORMAL BREATHING PATTERN, UNREMARKABLE - Cardiovascular Exam Cardiovascular Exam: REGULAR RHYTHM - GI/Abdominal Exam GI & Abdominal Exam: Normal Bowel Sounds, Soft, Unremarkable. absent: Distended , Tenderness - Neurological Exam Neurological exam: Alert, CN II-XII Intact, Normal Gait, Oriented x3, Reflexes Normal - Psychiatric Exam Psychiatric exam: Normal Affect, Normal Mood - Skin Skin Exam: Dry, Intact, Normal Color, Warm Discharge Plan - Discharge Medications Prescriptions: Ciprofloxacin [Cipro] 500 mg PO Q12 14 Days tab metroNIDAZOLE [Flagyl] 500 mg PO Q8 14 Days tab Ondansetron ODT [Zofran ODT] 4 mg PO Q4H PRN 30 Days odt PRN Reason: Nausea/Vomiting Saccharomyces Boulardi [Florastor] 250 mg PO BID #60 cap - Follow Up Plan Condition: STABLE Disposition: HOME/ ROUTINE Instructions: Celiac Disease, Viral Gastroenteritis, Adult (DC), Gluten-Free Diet Additional Instructions: Please take medications as prescribed and were explained to you. Please follow up with Dr. Saucedo in his office in 1-2 weeks. Please call the office to make an appointment. Please come back to the ER if symptoms return. Referrals: Oswaldo Montanez MD [Primary Care Provider] - Robby Saucedo MD [Staff Provider] - <Julian Guillen - Last Filed: 09/12/17 13:56> Provider - Provider Date of Admission: 09/08/17 21:05 Attending physician: Julian Guillen MD Primary care physician: Oswaldo Montanez MD Hospital Course - Lab Results Lab Results: Micro Results 09/09/17 12:16 Stool Ova and Parasite Concentrate Exam - Final 09/09/17 12:16 Stool C. difficile Antigen & Toxin A,B (M - Final Most Recent Lab Values WBC 4.8 10^3/ul (4.5-11.0) 09/11/17 06:00 RBC 4.44 10^6/uL (3.5-6.1) 09/11/17 06:00 Hgb 11.8 g/dL (12.0-16.0) L 09/11/17 06:00 Hct 36.8 % (36.0-48.0) 09/11/17 06:00 MCV 82.9 fl (80.0-105.0) 09/11/17 06:00 MCH 26.6 pg (25.0-35.0) 09/11/17 06:00 MCHC 32.1 g/dl (31.0-37.0) 09/11/17 06:00 RDW 15.7 % (11.5-14.5) H 09/11/17 06:00 Plt Count 320 10^3/uL (120.0-450.0) 09/11/17 06:00 MPV 10.4 fl (7.0-11.0) 09/11/17 06:00 Gran % 43.0 % (50.0-68.0) L 09/11/17 06:00 Lymph % (Auto) 47.2 % (22.0-35.0) H 09/11/17 06:00 [place] % (Auto) 7.3 % (1.0-6.0) H 09/11/17 06:00 Eos % (Auto) 2.1 % (1.5-5.0) 09/11/17 06:00 Baso % (Auto) 0.4 % (0.0-3.0) 09/11/17 06:00 Gran # 2.05 (1.4-6.5) 09/11/17 06:00 Lymph # (Auto) 2.3 (1.2-3.4) 09/11/17 06:00 [place] # (Auto) 0.4 (0.1-0.6) 09/11/17 06:00 Eos # (Auto) 0.1 (0.0-0.7) 09/11/17 06:00 Baso # (Auto) 0.02 K/mm3 (0.0-2.0) 09/11/17 06:00 PT 13.0 SECONDS (9.4-12.5) H 09/08/17 19:00 INR 1.14 (0.93-1.08) H 09/08/17 19:00 APTT 32.1 Seconds (25.1-36.5) 09/09/17 07:00 pO2 45 mm/Hg (30-55) 09/08/17 19:10 VBG pH 7.27 (7.32-7.43) L 09/08/17 19:10 VBG pCO2 54.0 (40-60) 09/08/17 19:10 VBG HCO3 24.8 mmol/l (21-28) 09/08/17 19:10 VBG Total CO2 26.5 mmol.L (22-28) 09/08/17 19:10 VBG O2 Sat (Calc) 83.7 % (40-65) H 09/08/17 19:10 VBG Base Excess -2.9 mmol/L (0.0-2.0) L 09/08/17 19:10 VBG Potassium 3.8 mmol/L (3.6-5.2) 09/08/17 19:10 Sodium 139.0 mmol/L (132-148) 09/08/17 19:10 Chloride 110.0 mmol/L (98-107) H 09/08/17 19:10 Glucose 88 mg/dl (65-105) 09/08/17 19:10 Lactate 0.7 mmol/L (0.7-2.1) 09/08/17 19:10 FiO2 21.0 % 09/08/17 19:10 Sodium 146 mmol/L (132-148) 09/11/17 06:00 Potassium 3.7 mmol/L (3.6-5.0) 09/11/17 06:00 Chloride 110 mmol/L (98-107) H 09/11/17 06:00 Carbon Dioxide 24 mmol/L (21-33) 09/11/17 06:00 Anion Gap 16 (10-20) 09/11/17 06:00 BUN 7 mg/dL (7-21) 09/11/17 06:00 Creatinine 0.6 mg/dl (0.7-1.2) L 09/11/17 06:00 Est GFR ( Amer) > 60 09/11/17 06:00 Est GFR (Non-Af Amer) > 60 09/11/17 06:00 Random Glucose 98 mg/dL (70-110) 09/11/17 06:00 Calcium 8.8 mg/dL (8.4-10.5) 09/11/17 06:00 Phosphorus 2.7 mg/dL (2.5-4.5) 09/10/17 06:00 Magnesium 1.7 mg/dL (1.7-2.2) 09/10/17 06:00 Total Bilirubin 0.3 mg/dL (0.2-1.3) 09/11/17 06:00 AST 30 U/L (14-36) 09/11/17 06:00 ALT 54 U/L (7-56) 09/11/17 06:00 Alkaline Phosphatase 70 U/L (38-126) 09/11/17 06:00 Total Protein 6.3 g/dL (5.8-8.3) 09/11/17 06:00 Albumin 3.3 g/dL (3.0-4.8) 09/11/17 06:00 Globulin 3.0 gm/dL 09/11/17 06:00 Albumin/Globulin Ratio 1.1 (1.1-1.8) 09/11/17 06:00 Lipase 74 U/L (23-300) 09/08/17 19:00 Venous Blood Potassium 3.8 mmol/L (3.6-5.2) 09/08/17 19:10 Urine Color Yellow (YELLOW) 09/08/17 19:10 Urine Appearance Clear (CLEAR) 09/08/17 19:10 Urine pH 6.0 (4.7-8.0) 09/08/17 19:10 Ur Specific Jakin 1.020 (1.005-1.035) 09/08/17 19:10 Urine Protein Negative mg/dL (<30 mg/dL) 09/08/17 19:10 Urine Glucose (UA) Negative mg/dL (NEGATIVE) 09/08/17 19:10 Urine Ketones Negative mg/dL (NEGATIVE) 09/08/17 19:10 Urine Blood Small (NEGATIVE) H 09/08/17 19:10 Urine Nitrate Negative (NEGATIVE) 09/08/17 19:10 Urine Bilirubin Negative (NEGATIVE) 09/08/17 19:10 Urine Urobilinogen 0.2 E.U./dL (<1 E.U./dL) 09/08/17 19:10 Ur Leukocyte Esterase Negative Dragan/uL (NEGATIVE) 09/08/17 19:10 Urine RBC 15 - 20 /hpf (0-2) 09/08/17 19:10 Urine WBC 5 - 10 /hpf (0-6) 09/08/17 19:10 Ur Epithelial Cells 10 - 12 /hpf (0-5) 09/08/17 19:10 Urine Bacteria Small (NEG) 09/08/17 19:10 Stool Leukocytes, Qual Negative (NEGATIVE) 09/09/17 12:13 IgA 214 mg/dL (81-463) 09/09/17 07:30 Endomysial IgA Ab Titer TEST NOT PERFORMED 09/09/17 07:30 Endomysial IgA Ab TEST NOT PERFORMED 09/09/17 07:30 Tiss Transglutamin IgA 1 U/mL 09/09/17 07:30 Celiac Disease Interp See note 09/09/17 07:30 Giardia Antigen Not detected (Not Detected) 09/09/17 12:13 Attending/Attestation - Attestation I have personally seen and examined this patient.: Yes I have fully participated in the care of the patient.: Yes I have reviewed all pertinent clinical information, including history, physical exam and plan: Yes Notes (Text): I have seen and examined the patient at bedside. Agree with the above note. GI on board. Patient is able to tolerate the diet. Will continue antibiotics. Discussed in detail with the patient and the son over the phone. Upon discharge patient will follow up with Dr Montanez and Dr Saucedo.
[2017-09-11 15:35] VITALS: PULSE 59; TEMP 97.5; O2SAT 97
== END 2017-09-11 18:43 | disposition home or self-care (01) | DRG 813 ==
LOC: ED 17:42 → ERH 21:05 → 3RSO 22:07
PROVIDERS: ADMIT Hospitalist; ATTEND Hospitalist
DX: K52.9 Noninfective gastroenteritis and colitis, unspecified (principal); K90.0 Celiac disease; K21.9 Gastro-esophageal reflux disease without esophagitis; I10 Essential (primary) hypertension; E78.5 Hyperlipidemia, unspecified; Z91.19 Patient's noncompliance with other medical treatment and regimen; Z91.14 Patient's other noncompliance with medication regimen; E66.9 Obesity, unspecified; Z68.34 Body mass index [BMI] 34.0-34.9, adult

== ENCOUNTER 2018-04-15 23:27 | Observation (INO) | payer MEDICARE, MEDICAID ==
[2018-04-16] MEDS ORDERED: Morphine 2 mg/ml ISec IVP STA (00:07)
--- NOTE | 2018-04-16 00:31 | ED PDOC ---
Arrival/HPI - General Historian: Patient - History of Present Illness Narrative History of Present Illness (Text): 04/16/18 00:21 72yo female with pmhx of hypertension, Celiac disease who was bib EMS with complaint of generalized abdominal pain with associated nausea, vomiting and diarrhea x 4days. The daughter states patient saw her PMD for the pain and was given a medication which she started today. States pain became worse today after taking the medication and then she started having nausea and vomiting. Reports chronic diarrhea secondary to her Celiac disease. She denies fever, chills, chest pain, SOB, diaphoresis, melena, hematemesis, urinary symptoms, sick contact, any other complaint. The daughter reports negative Colonoscopy 6months ago. <Titus Colin - Last Filed: 04/16/18 01:52> <Fahad Stephens - Last Filed: 04/16/18 04:20> - General Chief Complaint: Abdominal Pain Time Seen by Provider: 04/15/18 23:41 Past Medical History - Provider Review Nursing Documentation Reviewed: Yes - Past History Past History: No Previous - Infectious Disease Hx of Infectious Diseases: None - Tetanus Immunization Tetanus Immunization: Unknown - Cardiac Hx Hypertension: Yes Hx Pacemaker: No - Pulmonary Hx Asthma: Yes - Neurological Hx Neurological Disorder: No - HEENT Hx HEENT Disorder: Yes Hx Cataracts: Yes - Renal Hx Renal Disorder: No - Endocrine/Metabolic Hx Endocrine Disorders: No - Hematological/Oncological Hx Blood Disorders: No - Integumentary Hx Dermatological Disorder: No - Musculoskeletal/Rheumatological Hx Osteoporosis: Yes - Gastrointestinal Hx Gastrointestinal Ulcer: Yes - Genitourinary/Gynecological Hx Genitourinary Disorders: No - Psychiatric Hx Depression: Yes Hx Substance Use: No - Surgical History Hx Appendectomy: Yes Hx Tonsillectomy: Yes - Anesthesia Hx Anesthesia: Yes Hx Anesthesia Reactions: No Hx Malignant Hyperthermia: No - Suicidal Assessment Feels Threatened In Home Enviroment: No <Titus Colin - Last Filed: 04/16/18 01:52> Family/Social History - Physician Review Nursing Documentation Reviewed: Yes Family/Social History: Unknown Family HX Smoking Status: Never Smoked Hx Alcohol Use: No Hx Substance Use: No Hx Substance Use Treatment: No <Titus Colin A - Last Filed: 04/16/18 01:52> Allergies/Home Meds <Titus Colin A - Last Filed: 04/16/18 01:52> <Fahad Stephens - Last Filed: 04/16/18 04:20> Allergies/Adverse Reactions: Allergies aspirin Allergy (Verified 09/06/17 10:26) ITCHING gluten Allergy (Verified 09/06/17 10:26) DIARRHEA Home Medications: Home Meds Medication Instructions Recorded Confirmed Simvastatin [Zocor] 20 mg PO QPM 04/25/17 09/08/17 amLODIPine [Norvasc] 2.5 mg PO DAILY 09/06/17 09/08/17 Review of Systems - Physician Review All systems were reviewed & negative as marked: Yes - Review of Systems Constitutional: Normal Eyes: Normal ENT: Normal Respiratory: Normal Cardiovascular: Normal Gastrointestinal: Abdominal Pain, Diarrhea, Nausea, Vomiting. absent: Constipation, Hematochezia, Hematemesis Genitourinary Female: Normal Musculoskeletal: Normal Skin: Normal Neurological: Normal Endocrine: Normal Hemo/Lymphatic: Normal Psychiatric: Normal <Titus Colin - Last Filed: 04/16/18 01:52> Physical Exam Vital Signs Reviewed: Yes Vital Signs Temp Pulse Resp BP Pulse Ox 04/15/18 23:54 98.0 F 66 17 117/66 96 Temperature: Afebrile Blood Pressure: Normal Pulse: Regular Respiratory Rate: Normal Appearance: Positive for: Well-Appearing, Non-Toxic, Comfortable Pain Distress: None Mental Status: Positive for: Alert and Oriented X 3 - Systems Exam Head: Present: Atraumatic, Normocephalic Pupils: Present: PERRL Extroacular Muscles: Present: EOMI Conjunctiva: Present: Normal Mouth: Present: Moist Mucous Membranes Neck: Present: Normal Range of Motion Respiratory/Chest: Present: Clear to Auscultation, Good Air Exchange. No: Respiratory Distress, Accessory Muscle Use Cardiovascular: Present: Regular Rate and Rhythm, Normal S1, S2. No: Murmurs Abdomen: Present: Tenderness (Epigastric tenderness), Normal Bowel Sounds, Guarding (Voluntary), Other (Soft). No: Distention, Peritoneal Signs, Rebound, McBurney's Point Tender, Rovsing's Sign Present Back: Present: Normal Inspection Upper Extremity: Present: Normal Inspection. No: Cyanosis, Edema Lower Extremity: Present: Normal Inspection. No: Edema Neurological: Present: GCS=15, CN II-XII Intact, Speech Normal Skin: Present: Warm, Dry, Normal Color. No: Rashes Psychiatric: Present: Alert, Oriented x 3, Normal Insight, Normal Concentration <CristiHappiness A - Last Filed: 04/16/18 01:52> Vital Signs Temp Pulse Resp BP Pulse Ox 04/15/18 23:54 98.0 F 66 17 117/66 96 <Fahad Stephens - Last Filed: 04/16/18 04:20> Medical Decision Making ED Course and Treatment: 04/16/18 01:57 72yo female bib EMS for generalized abdominal pain. Notes worsening pain on her epigastric area and was tender on palpation over her epigastric area. Labs EKG blood culture Lactic acid I NS, pepcid, Zofran, Morphine Abdominal/pelvic CT Will reassess Lab was reviewed and all unremarkable EKG NSR @ 65bpm. N-stemi CT pending. Pt reports improvement in ED with medication and hydration Case was endorsed to Dr. Stephens to f/u CT and dispo. - Medication Orders Current Medication Orders: Discontinued Medications Famotidine (Pepcid) 20 mg IVP STAT STA Stop: 04/15/18 23:56 Morphine Sulfate (Morphine) 2 mg IVP STAT STA Stop: 04/16/18 00:08 Ondansetron HCl (Zofran Inj) 4 mg IVP STAT STA Stop: 04/16/18 00:08 <Titus Colin A - Last Filed: 04/16/18 01:52> ED Course and Treatment: 04/16/18 04:12 CT Abdomen and Pelvis: Uncomplicated colonic diverticulosis. Fluid-filled dilated small bowel. Transition to normal caliber small bowel. The liver is of uniform attenuation without mass or defect. There is no intra or extrahepatic biliary ductal dilatation. The spleen is normal. The gallbladder is within normal limits. The pancreas is of normal contour and attenuation latrice racteristics. There is no evidence of adrenal mass. Both kidneys demonstrate prompt and equal nephrograms. The kidneys are normal in size, shape and configuration. There is no evidence of renal or ureteral mass. No renal or ureteral calculi are identified. There is no hydroureter or hydronephrosis. No evidence for appendicitis. There is no evidence of abdominal ascites or lymphadenopathy. There is no evidence of intrinsic or extrinsic bladder mass. There is no pelvic ascites or lymphadenopathy. Images of the lung bases show no evidence of pleural or parenchymal mass. There are no pleural effusions. The bony structures are free of lytic or blastic lesions. Moderate diffuse spondylosis. IMPRESSION: Partial small bowel obstruction. Transition zone in the right lower quadrant without perforation or pneumatosis intestinalis. 04/16/18 04:[address] Em, who is aware and agrees with plan. Accepts pt in to his service. Pt will go to [facility] observation for partial small bowel obstruction. Requests Dr. Neal on consult. Pt agreeable with plan. - Lab Interpretations Lab Results: 04/16/18 00:35 04/16/18 00:35 Lab Results 04/16/18 00:35: Sodium 140, Potassium 4.2, Chloride 111 H, Carbon Dioxide 23, Anion Gap 11, BUN 16, Creatinine 0.7, Est GFR ( Amer) > 60, Est GFR (Non- Af Amer) > 60, Random Glucose 115 H, Calcium 9.3, Total Bilirubin 0.2, AST 20, ALT 40, Alkaline Phosphatase 59, Lactate Dehydrogenase 348, Total Creatine Kinase 39, Troponin I < 0.01, Total Protein 7.5, Albumin 3.8, Globulin 3.7, Albumin/Globulin Ratio 1.0 L, Amylase 70, Lipase 68 04/16/18 00:35: PT 13.7 H, INR 1.20, APTT 30.0 04/16/18 00:35: WBC 5.6, RBC 4.51, Hgb 12.2, Hct 38.8, MCV 86.0 D, MCH 27.1, MCHC 31.4, RDW 15.3 H, Plt Count 294, MPV 10.2, Gran % 40.7 L, Lymph % (Auto) 49.9 H, [place] % (Auto) 6.2 H, Eos % (Auto) 2.8, Baso % (Auto) 0.4, Gran # 2.29, Lymph # (Auto) 2.8, [place] # (Auto) 0.4, Eos # (Auto) 0.2, Baso # (Auto) 0.02 - RAD Interpretation Radiology Orders: 04/16/18 00:32 ABD & PELVIS IV CONTRAST ONLY [CT] Stat - Medication Orders Current Medication Orders: Discontinued Medications Famotidine (Pepcid) 20 mg IVP STAT STA Stop: 04/15/18 23:56 Last Admin: 04/16/18 00:30 Dose: 20 mg IVP Administration Document 04/16/18 00:30 JOWade (Rec: [facility]/16/18 00:[id number] Charges for Administration # of IVP Administrations 1 Morphine Sulfate (Morphine) 2 mg IVP STAT STA Stop: 04/16/18 00:08 Last Admin: 04/16/18 00:42 Dose: Not Given Non-Admin Reason: Patient Refused Ondansetron HCl (Zofran Inj) 4 mg IVP STAT STA Stop: 04/16/18 00:08 Last Admin: 04/16/18 00:30 Dose: 4 mg IVP Administration Document 04/16/18 00:30 JOWade (Rec: 04/16/18 00:41 JO [id number]) Charges for Administration # of IVP Administrations 1 <Fahad Stephens - Last Filed: 04/16/18 04:20> - PA / CARPET LOOM FIXER / Resident Statement YAAKOV has reviewed & agrees with the documentation as recorded. YAAKOV has examined the patient and agrees with the treatment plan. <Fahad Stephens - Last Filed: 04/16/18 04:20> Disposition/Present on Arrival - Present on Arrival History of DVT/PE: No History of Uncontrolled Diabetes: No Urinary Catheter: No History of Decub. Ulcer: No History Surgical Site Infection Following: None <Titus Colin - Last Filed: 04/16/18 01:52> - Present on Arrival Any Indicators Present on Arrival: No History of DVT/PE: No History of Uncontrolled Diabetes: No Urinary Catheter: No History of Decub. Ulcer: No History Surgical Site Infection Following: None - Disposition Have Diagnosis and Disposition been Completed?: Yes Disposition Time: 04:19 <Fahad Stephens - Last Filed: 04/16/18 04:20> - Disposition Diagnosis: Partial small bowel obstruction Disposition: HOSPITALIZED Condition: STABLE Referrals: Oswaldo Montanez MD [Medical Doctor] - Follow up with primary Forms: [facility] ([place]e)
[2018-04-16 00:50] LABS: BASO # 0.02 K/mm3 (0.0-2.0); BASO % 0.4 % (0.0-3.0); EOS # 0.2 (0.0-0.7); EOS % 2.8 % (1.5-5.0); GRAN # 2.29 (1.4-6.5); GRAN % 40.7 % (50.0-68.0); HEMOGLOBIN 12.2 g/dL (12.0-16.0); LYMPH # 2.8 (1.2-3.4); LYMPH % 49.9 % (22.0-35.0); MEAN CORPUSCULAR HEMOGLOBIN 27.1 pg (25.0-35.0); MEAN CORPUSCULAR HGB CONC 31.4 g/dl (31.0-37.0); MEAN PLATELET VOLUME 10.2 fl (7.0-11.0); MONO # 0.4 (0.1-0.6); MONO % 6.2 % (1.0-6.0); RBC 4.51 10^6/uL (3.5-6.1); RED CELL DISTRIBUTION WIDTH 15.3 % (11.5-14.5); WHITE BLOOD COUNT 5.6 10^3/uL (4.5-11.0)
[2018-04-16 01:02] LABS: ALBUMIN 3.8 g/dL (3.0-4.8); ALT/SGPT 40 U/L (7-56); AMYLASE 70 U/L (35-125); AST/SGOT 20 U/L (14-36); BLOOD UREA NITROGEN 16 mg/dL (7-21); CALCIUM 9.3 mg/dL (8.4-10.5); GFR NON-AFRICAN AMERICAN > 60; LIPASE 68 U/L (23-300)
[2018-04-16 01:10] LABS: INR 1.2; PROTHROMBIN TIME 13.7 SECONDS (9.4-12.5)
[2018-04-16 01:13] LABS: TROPONIN I < 0.01 ng/mL
[2018-04-16] MEDS ORDERED: Iohexol 350 MG/100 ML VIAL ONE (01:26)
[2018-04-16] MEDS ORDERED: Sodium Chloride 0.9% 1,000 ML IV STA ×2 (04:21)
[2018-04-16] MEDS ORDERED: Morphine 2 mg/ml ISec IVP PRN (06:56)
--- NOTE | 2018-04-16 07:04 | CP.PCM.HP ---
History of Present Illness - History of Present Illness History of Present Illness: Kenroy Lee, PGY1 H&P for Dr. Em's Service This is a 72 year old female with PMH of IBS, HTN and celiac disease presenting to the hospital for 4 day history of abdominal pain, nausea and several episodes of nonbloody vomiting and diarrhea. Abdominal pain is located in the epigastric region, non radiating, rated 10/10 at worst, constant and characterized as sharp. Patient denies exacerbating and alleviating factors. Per daughter, symptoms started after patient started vibrizi 100mg earlier this week. Patient reports decreased appetite over the last few days and last BM was a few hours prior to arrival. Per daughter, patients symptoms are similar to previous episodes of celiac disease flare. Daughter also states patient has lost approximately 20 pounds over the last one year. She denies CP, SOB, fevers, back pain, constipation, urinary complaints, numbness, tingling, swelling, recent travel, sickness, sick contacts, trauma and lifestyle changes including diet and. PMD: Dr. Suarez PMH: Celiac disease, HTN, IBS SH: denies smoking, drinking and drug use. Lives at home with her family Sx: appendix removal, B/L cataracts removal All: Aspirin, Gluten Present on Admission - Present on Admission Any Indicators Present on Admission: No Past Patient History - Infectious Disease Hx of Infectious Diseases: None - Tetanus Immunizations Tetanus Immunization: Unknown - Past Medical History & Family History Past Medical History?: Yes - Past Social History Smoking Status: Never Smoked - CARDIAC Hx Hypertension: Yes Hx Pacemaker: No - PULMONARY Hx Asthma: Yes - NEUROLOGICAL Hx Neurological Disorder: No - HEENT Hx HEENT Problems: Yes Hx Cataracts: Yes - RENAL Hx Chronic Kidney Disease: No - ENDOCRINE/METABOLIC Hx Endocrine Disorders: No - HEMATOLOGICAL/ONCOLOGICAL Hx Blood Disorders: No - INTEGUMENTARY Hx Dermatological Problems: No - MUSCULOSKELETAL/RHEUMATOLOGICAL Hx Osteoporosis: Yes - GASTROINTESTINAL Hx Gastrointestinal Disorders: Yes Other/Comment: Celiac Disease - GENITOURINARY/GYNECOLOGICAL Hx Genitourinary Disorders: No - PSYCHIATRIC Hx Depression: Yes Hx Substance Use: No - SURGICAL HISTORY Hx Appendectomy: Yes Hx Tonsillectomy: Yes - ANESTHESIA Hx Anesthesia: Yes Hx Anesthesia Reactions: No Hx Malignant Hyperthermia: No Meds Allergies/Adverse Reactions: Allergies Allergy/AdvReac Type Severity Reaction Status Date / Time aspirin Allergy ITCHING Verified 05/04/18 10:26 gluten Allergy DIARRHEA Verified 09/06/17 10:26 Physical Exam - Constitutional Appears: No Acute Distress Additional comments: lethargic - Head Exam Head Exam: ATRAUMATIC, NORMAL INSPECTION - Eye Exam Eye Exam: EOMI Pupil Exam: PERRL - ENT Exam ENT Exam: Mucous Membranes Dry - Respiratory Exam Respiratory Exam: Clear to Auscultation Bilateral, NORMAL BREATHING PATTERN. absent: Accessory Muscle Use, Wheezes, Respiratory Distress - Cardiovascular Exam Cardiovascular Exam: REGULAR RHYTHM, +S1, +S2. absent: Tachycardia - GI/Abdominal Exam GI & Abdominal Exam: Normal Bowel Sounds, Soft. absent: Distended, Firm, Guarding Additional comments: epigastric tenderness appreciated, pacheco sign is negative - Extremities Exam Extremities exam: Positive for: normal inspection, pedal pulses present. Negative for: calf tenderness - Back Exam Back exam: NORMAL INSPECTION. absent: CVA tenderness (L), CVA tenderness (R) - Neurological Exam Neurological exam: Alert, Oriented x3 - Skin Skin Exam: Normal Color, Warm Results - Vital Signs Recent Vital Signs: Last Vital Signs Temp 98.0 F 04/15/18 23:54 Pulse 67 04/16/18 03:07 Resp 18 04/16/18 03:07 BP 99/61 L 04/16/18 03:07 Pulse Ox 96 04/16/18 03:07 - Labs Result Diagrams: 04/16/18 00:35 04/16/18 00:35 Labs: Laboratory Results - last 24 hr 04/16/18 04/16/18 04/16/18 00:35 00:35 00:35 WBC 5.6 RBC 4.51 Hgb 12.2 Hct 38.8 MCV 86.0 D MCH 27.1 MCHC 31.4 RDW 15.3 H Plt Count 294 MPV 10.2 Gran % 40.7 L Lymph % (Auto) 49.9 H [place] % (Auto) 6.2 H Eos % (Auto) 2.8 Baso % (Auto) 0.4 Gran # 2.29 Lymph # (Auto) 2.8 [place] # (Auto) 0.4 Eos # (Auto) 0.2 Baso # (Auto) 0.02 PT 13.7 H INR 1.20 APTT 30.0 Sodium 140 Potassium 4.2 Chloride 111 H Carbon Dioxide 23 Anion Gap 11 BUN 16 Creatinine 0.7 Est GFR ( Amer) > 60 Est GFR (Non-Af Amer) > 60 Random Glucose 115 H Calcium 9.3 Total Bilirubin 0.2 AST 20 ALT 40 Alkaline Phosphatase 59 Lactate Dehydrogenase 348 Total Creatine Kinase 39 Troponin I < 0.01 Total Protein 7.5 Albumin 3.8 Globulin 3.7 Albumin/Globulin Ratio 1.0 L Amylase 70 Lipase 68 Assessment & Plan - Assessment and Plan (Free Text) Assessment: This is a 72 year old female with PMH of IBS, HTN and celiac disease presenting to the hospital for 4 day history of abdominal pain, nausea and several episodes of nonbloody vomiting and diarrhea. Plan: Intractable abdominal pain -hx of celiac and IBS -CTAP shows partial small bowel obstruction. F/U official read -will focus on bowel rest at this time -NPO -LR 100cc -GI on consult, Dr. Neal -U/A pending -blood culture, urine culture pending -stool culture, c diff, ova/parasites pending -salmonella pending -Obstructive series -morphine prn -reglan -PT/OT Hx of HTN -vitals are stable at this time -continue to monitor PPX with SCD and protonix Patient case discussed with attending, Dr. Em
[2018-04-16] MEDS: Lactated Ringer's 1,000 ML IV SCH ×2 (08:12→21:23)
--- NOTE | 2018-04-16 10:49 | CT ---
Date of service: 04/16/2018 PROCEDURE: CT Abdomen and Pelvis with and without intravenous contrast HISTORY: abdominal pain COMPARISON: None. TECHNIQUE: Axial images of the abdomen were obtained in the pre contrast, portal venous and delayed phases of enhancement. Coronal and sagittal reformats were generated. Contrast dose: Radiation dose: Total exam DLP = 520.36 mGy-cm. This CT exam was performed using one or more of the following dose reduction techniques: Automated exposure control, adjustment of the mA and/or kV according to patient size, and/or use of iterative reconstruction technique. FINDINGS: LOWER THORAX: Unremarkable. LIVER: Unremarkable. No gross lesion or ductal dilatation. GALLBLADDER AND BILE DUCTS: Unremarkable. PANCREAS: Unremarkable. No gross lesion or ductal dilatation. SPLEEN: Unremarkable. ADRENALS: Unremarkable. No mass. KIDNEYS AND URETERS: Unremarkable. No hydronephrosis. No solid mass. VASCULATURE: Unremarkable. No aortic aneurysm. No aortic atherosclerotic calcification or mural plaque present. BOWEL: Multiple dilated loops of small bowel with transition to normal caliber in the right lower quadrant compatible with an ileus or partial small bowel obstruction. APPENDIX: Normal appendix. PERITONEUM: Unremarkable. No free fluid. No free air. LYMPH NODES: Unremarkable. No enlarged lymph nodes. BLADDER: Unremarkable. REPRODUCTIVE: Unremarkable. BONES: No acute fracture. OTHER FINDINGS: None. IMPRESSION: Multiple dilated loops of small bowel with transition to normal caliber in the right lower quadrant compatible with an ileus or partial small bowel obstruction.
--- NOTE | 2018-04-16 13:00 | CP.PCM.CON ---
<Chris Flynn - Last Filed: 04/16/18 14:23> History of Present Illness - History of Present Illness History of Present Illness: PGY6 GI Fellow Consult Note Patient is a 72 year old female with past medical history significant for obesity (BMI 30), HTN, hyperlipidemia, chronic diarrhea and questionable Celiac disease who presented to the ED with complaint of abdominal pain. The patient has been suffering with chronic diarrhea for several years, tentatively diagnosed with Celiac disease over 8 years ago following endoscopic evaluation. Patient admits to adherence with gluten-free diet since. Symptoms remained intermittent and she has also used Cholestyramine as an outpatient. This past week, when diarrhea again worsened, she was started on Viberzi by her PCP. Initially, symptoms improved but soon after she developed constipation, bloating and eventually diffuse abdominal pain with inability to pass stool and nausea/vomiting and inability to tolerate oral intake. Symptoms persisted and thus she presented to the ED for further evaluation. CT scan in the ED appears to show dilated loops of small bowel and stricture consistent with a small bowel obstruction. Patient had a large, watery bowel movement last night and immediately had improvement in symptoms. Currently, she is asymptomatic. She admits to ~15-20 pound weight loss in the last year which she cannot explain. Denies any fever, chills, sick contacts or recent travel. 12 point ROS performed and negative except where stated PMHx: hypertension, hyperlipidemia, GERD, vertigo and colitis PSHx: appendicitis, hemorrhoidectomy, cataract surgery FHx: Discussed with patient and deny any significant family history Social: Denies tobacco, EtOH or illicit drug use Endo: 04/2017 - EGD/Colonoscopy - both unremarkable, path negative for changes of celiac disease though some focal intraepithelial lymphocytes noted (nonspec ific finding) Past Patient History - Infectious Disease Hx of Infectious Diseases: None - Tetanus Immunizations Tetanus Immunization: Unknown - Past Medical History & Family History Past Medical History?: Yes - Past Social History Smoking Status: Never Smoked - CARDIAC Hx Hypertension: Yes - PULMONARY Hx Asthma: Yes - NEUROLOGICAL Hx Neurological Disorder: No - HEENT Hx HEENT Problems: Yes Hx Cataracts: Yes - RENAL Hx Chronic Kidney Disease: No - ENDOCRINE/METABOLIC Hx Endocrine Disorders: No - HEMATOLOGICAL/ONCOLOGICAL Hx Blood Disorders: No - INTEGUMENTARY Hx Dermatological Problems: No - MUSCULOSKELETAL/RHEUMATOLOGICAL Hx Osteoporosis: Yes - GASTROINTESTINAL Hx Gastrointestinal Disorders: Yes Other/Comment: Celiac Disease - GENITOURINARY/GYNECOLOGICAL Hx Genitourinary Disorders: No - PSYCHIATRIC Hx Depression: Yes Hx Substance Use: No - SURGICAL HISTORY Hx Appendectomy: Yes Hx Tonsillectomy: Yes - ANESTHESIA Hx Anesthesia: Yes Hx Anesthesia Reactions: No Hx Malignant Hyperthermia: No Meds Allergies/Adverse Reactions: Allergies Allergy/AdvReac Type Severity Reaction Status Date / Time aspirin Allergy ITCHING Verified 04/16/18 11:35 gluten Allergy DIARRHEA Verified 04/16/18 11:35 - Medications Medications: Current Medications Acetaminophen (Tylenol 650 Mg Supp) 650 mg RC Q6H PRN PRN Reason: TEMP>=99.5F Heparin Sodium (Porcine) (Heparin) 5,000 units SC Q8 [facility]; Protocol Last Admin: 04/16/18 11:12 Dose: Not Given Lactated Ringer's (Lactated Ringer's) 1,000 mls @ 100 mls/hr IV .Q10H [facility] Last Admin: 04/16/18 08:12 Dose: 100 mls/hr Metoclopramide HCl (Reglan) 5 mg IVP Q6H [facility] Stop: 04/18/18 01:01 Last Admin: 04/16/18 08:12 Dose: Not Given Morphine Sulfate (Morphine) 2 mg IVP Q6H PRN PRN Reason: Pain, moderate (4-7) Ondansetron HCl (Zofran Inj) 4 mg IVP Q4H PRN PRN Reason: Nausea/Vomiting Pantoprazole Sodium (Protonix Inj) 40 mg IVP Q12 [facility] Last Admin: 04/16/18 10:53 Dose: 40 mg Physical Exam - Constitutional Appears: Non-toxic, No Acute Distress - Eye Exam Eye Exam: EOMI, PERRL - ENT Exam ENT Exam: Mucous Membranes Moist - Respiratory Exam Respiratory Exam: Clear to Auscultation Bilateral. absent: Rales, Rhonchi, Wheezes - Cardiovascular Exam Cardiovascular Exam: RRR, +S1, +S2 - GI/Abdominal Exam GI & Abdominal Exam: Hypoactive Bowel Sounds, Soft. absent: Distended, Firm, Guarding, Organomegaly, Rigid, Tenderness - Extremities Exam Additional comments: 1+ B/L edema - Neurological Exam Neurological exam: Alert, Oriented x3 - Psychiatric Exam Psychiatric exam: Normal Affect, Normal Mood - Skin Skin Exam: Dry, Warm Results - Vital Signs Recent Vital Signs: Last Vital Signs Temp 97.7 F 04/16/18 08:22 Pulse 66 04/16/18 08:22 Resp 18 04/16/18 08:22 BP 92/54 L 04/16/18 08:07 Pulse Ox 98 04/16/18 08:22 - Labs Result Diagrams: 04/16/18 00:35 04/16/18 00:35 Labs: Laboratory Results - last 24 hr 04/16/18 04/16/18 04/16/18 00:35 00:35 00:35 WBC 5.6 RBC 4.51 Hgb 12.2 Hct 38.8 MCV 86.0 D MCH 27.1 MCHC 31.4 RDW 15.3 H Plt Count 294 MPV 10.2 Gran % 40.7 L Lymph % (Auto) 49.9 H [place] % (Auto) 6.2 H Eos % (Auto) 2.8 Baso % (Auto) 0.4 Gran # 2.29 Lymph # (Auto) 2.8 [place] # (Auto) 0.4 Eos # (Auto) 0.2 Baso # (Auto) 0.02 PT 13.7 H INR 1.20 APTT 30.0 Sodium 140 Potassium 4.2 Chloride 111 H Carbon Dioxide 23 Anion Gap 11 BUN 16 Creatinine 0.7 Est GFR ( Amer) > 60 Est GFR (Non-Af Amer) > 60 Random Glucose 115 H Calcium 9.3 Total Bilirubin 0.2 AST 20 ALT 40 Alkaline Phosphatase 59 Lactate Dehydrogenase 348 Total Creatine Kinase 39 Troponin I < 0.01 Total Protein 7.5 Albumin 3.8 Globulin 3.7 Albumin/Globulin Ratio 1.0 L Amylase 70 Lipase 68 Assessment & Plan - Assessment and Plan (Free Text) Assessment: Patient is a 72 year old female with past medical history significant for obesity (BMI 30), HTN, hyperlipidemia, chronic diarrhea and questionable Celiac disease who presented to the ED with complaint of abdominal pain -Partial small bowel obstruction -Chronic diarrhea -Unintentional weight loss Plan: -CT reviewed and appears to show partial SBO with transition point in RLQ - unclear etiology given lack of prior instrumentation -Symptoms have resolved with defecation -Liquid diet and slowly advance as tolerated -Previously, chronic diarrhea work up performed previously including stool gap c/w osmotic diarrhea; as such would avoid lactose and gluten products, d/c any laxative therapy -Regarding prior diagnosis of celiac disease - apparently diagnosed 8 years ago with endoscopic evaluation per patient/family; has been compliant with gluten free diet since - possible that recent biopsy and serology would appear unremark able in this setting and may warrant outpatient HLA testing for confirmation -Given the above findings and unclear underlying etiology of obstruction, recommend further outpatient work up with either CT enterography or patency capsule/capsule enterography -Viberzi should be discontinued as bowel obstruction is listed as a possible side effect - Date & Time Date: 04/16/18 Time: 12:00 <Robby Saucedo - Last Filed: 04/16/18 15:12> Meds - Medications Medications: Current Medications Acetaminophen (Tylenol 650 Mg Supp) 650 mg RC Q6H PRN PRN Reason: TEMP>=99.5F Heparin Sodium (Porcine) (Heparin) 5,000 units SC Q8 [facility]; Protocol Last Admin: 04/16/18 13:43 Dose: Not Given Lactated Ringer's (Lactated Ringer's) 1,000 mls @ 100 mls/hr IV .Q10H [facility] Last Admin: 04/16/18 08:12 Dose: 100 mls/hr Metoclopramide HCl (Reglan) 5 mg IVP Q6H [facility] Stop: 04/18/18 01:01 Last Admin: 04/16/18 13:43 Dose: Not Given Morphine Sulfate (Morphine) 2 mg IVP Q6H PRN PRN Reason: Pain, moderate (4-7) Ondansetron HCl (Zofran Inj) 4 mg IVP Q4H PRN PRN Reason: Nausea/Vomiting Pantoprazole Sodium (Protonix Inj) 40 mg IVP Q12 [facility] Last Admin: 04/16/18 10:53 Dose: 40 mg Results - Vital Signs Recent Vital Signs: Last Vital Signs Temp 97.7 F 04/16/18 08:22 Pulse 66 04/16/18 08:22 Resp 18 04/16/18 08:22 BP 92/54 L 04/16/18 08:07 Pulse Ox 98 04/16/18 08:22 - Labs Result Diagrams: 04/16/18 00:35 04/16/18 00:35 Labs: Laboratory Results - last 24 hr 04/16/18 04/16/18 04/16/18 00:35 00:35 00:35 WBC 5.6 RBC 4.51 Hgb 12.2 Hct 38.8 MCV 86.0 D MCH 27.1 MCHC 31.4 RDW 15.3 H Plt Count 294 MPV 10.2 Gran % 40.7 L Lymph % (Auto) 49.9 H [place] % (Auto) 6.2 H Eos % (Auto) 2.8 Baso % (Auto) 0.4 Gran # 2.29 Lymph # (Auto) 2.8 [place] # (Auto) 0.4 Eos # (Auto) 0.2 Baso # (Auto) 0.02 PT 13.7 H INR 1.20 APTT 30.0 Sodium 140 Potassium 4.2 Chloride 111 H Carbon Dioxide 23 Anion Gap 11 BUN 16 Creatinine 0.7 Est GFR ( Amer) > 60 Est GFR (Non-Af Amer) > 60 Random Glucose 115 H Calcium 9.3 Total Bilirubin 0.2 AST 20 ALT 40 Alkaline Phosphatase 59 Lactate Dehydrogenase 348 Total Creatine Kinase 39 Troponin I < 0.01 Total Protein 7.5 Albumin 3.8 Globulin 3.7 Albumin/Globulin Ratio 1.0 L Amylase 70 Lipase 68 Attending/Attestation - Attestation I have fully participated in the care of the patient.: Yes I have reviewed all pertinent clinical information: Yes Notes (Text): 04/16/18 15:10 Obesity HTN Chronic diarrhea, questionable celiac Weight loss Abdominal pain - SBO - Advance diet slowly as tolerated - Suggest obtaining HLA testing for confirmation of celiac disease - Recommend discontinuing viberzi as a small risk of SBO does exist with medication use - Suggest outpatient capsule endoscopy vs CT enterography for further small bowel evaluation - Will continue to monitor patient clinical course
--- NOTE | 2018-04-16 15:38 | RAD ---
Date of service: 04/16/2018 HISTORY: intractable abdominal pain COMPARISON: None available. FINDINGS: BOWEL: The small bowel loops are normal in caliber. There is moderate amount of stool in the ascending colon. The bowel gas pattern is nonobstructive. BONES: Normal. OTHER FINDINGS: None. IMPRESSION: Nonspecific nonobstructive bowel gas pattern.
--- NOTE | 2018-04-16 15:58 | HP ---
DATE OF EXAM: 04/16/2018 HISTORY OF PRESENT ILLNESS: The patient is a 72-year-old Filipino female presented to the emergency room via the ambulance complaining of nausea, vomiting, diarrhea, upper abdominal pain for last 3-4 days after the patient was started on Viberzi by the patient's primary care physician. The patient states that the symptoms. According to the patient's daughter, the patient has history of celiac disease and the patient was recently started on Viberzi. The patient presented to the emergency room with upper abdominal pain, nausea, vomiting and diarrhea for 4 days.. After taking Viberzi, the patient states that the symptom got worse with abdominal fullness. No nausea, vomiting or diarrhea. REVIEW OF SYSTEMS: A 14-system review was pertinent for above symptoms. CODE STATUS: Full code. Living will advance directive none. Height is 4 feet 11 inches. Body mass index is 30. Weight is 150. ALLERGIES: ASPIRIN AND GLUTEN. HOME MEDICATIONS: Flagyl 500 p.o. every 8 hours, Norvasc 2.5 mg daily, Zocor 20 mg daily, Florastor 250 mg twice a day, Zofran ODT 4 mg every 4 hours p.r.n., Pepcid 40 mg daily, Oralyte 100 mg t.i.d. p.r.n., Cipro 500 every 12 hours and Viberzi 100 mg daily. SOCIAL HISTORY: Negative for substance abuse. Negative for alcohol. Negative for smoking. FAMILY HISTORY Not available. MENSTRUAL HISTORY: postmenopausal. PAST MEDICAL AND SURGICAL HISTORY: History of hypertension, history of hyperlipidemia, history of celiac disease, history of hypertension, hyperlipidemia, history of irritable bowel syndrome, history of celiac disease, history of for colonoscopy, recently those were negative, history of appendectomy, history of cataract surgery, HISTORY OF ASPIRIN AND GLUTEN ALLERGIES. 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 The patient is seen in room 566, bed 3. The patient is seen ambulating in the room. PHYSICAL EXAMINATION: VITAL SIGNS: T-max is 98, heart rate 66, 67, 57, blood pressure is 117/66, 99/61, respirations 18, O2 sat 98-99%. GENERAL: The patient is seen sitting up in the bed. HEENT: Head: Normocephalic, atraumatic. HEENT examination shows pink conjunctivae, anicteric sclerae, dry oral mucosa. NECK: No neck rigidity. CHEST: Kyphosis. LUNGS: Shows no audible crackle, rales or wheezing. CARDIOVASCULAR: S1, S2, regular rhythm. No audible murmur, gallop or rub. ABDOMEN: Soft. Positive bowel sounds. Positive protuberance noted. Abdomen examination shows obese abdomen, protuberant, positive epigastric tenderness, positive periumbilical tenderness. No costovertebral angle tenderness. Decreased bowel sounds. No guarding. No rigidity. No rebound tenderness. No costovertebral angle tenderness. GENITALIA: Female. RECTAL: Deferred. EXTREMITIES: Shows no pitting edema, no calf tenderness, no Homans' sign. MUSCULOSKELETAL: Shows a body mass index of 30. NEUROLOGIC: The patient is alert, awake, oriented x3, is able to ambulate independently. VASCULAR: Palpable pulses. Gait examination is independent. Cranial nerves II-XII intact. PSYCHIATRIC: Negative. The entire details of the history is communicated via the patient's daughter who is present at the bedside during the entire time. DIAGNOSTICS: WBC 5.6, hemoglobin/hematocrit 12.2, 38.8, platelet 294. PT/PTT 13.7, 30.0. Sodium 40, potassium 4.2, chloride 111, CO2 23, anion gap 11, BUN 16, creatinine 0.7, GFR greater than 60, glucose of 115, calcium 9.3. LFTs are normal. Troponin is negative. Amylase, lipase is negative. The patient had a CT of the . The patient's EKG was done in the emergency room which shows sinus rhythm, Q-wave in 1, questionable left axis deviation, Q-wave in 1 and aVL and left ventricular hypertrophy changes. CT scan of the abdomen and pelvis was done in the emergency room. The results were reviewed. The patient was evaluated in the emergency room by the ER physician and the medical services coordinator. The patient was treated in the emergency room with IV fluid, IV Zofran. CT scan of the abdomen and pelvis was done with contrast which shows colonic diverticulosis, fluid filled dilated small bowel with partial small bowel obstruction with transition point in the right lower quadrant without perforation and pneumatosis intestinalis. Treatment in the emergency room, the patient was given morphine 2 mg, Pepcid 20 mg IV fluids, Zofran 4 mg IV and the patient was advised to be admitted. IMPRESSION AND PLAN: 1. Nausea, vomiting, diarrhea. 2. Possible partial small bowel obstruction with transition zone in the right lower quadrant. 3. Colonic diverticulosis. 4. Diffuse spinal spondylosis. 5. Hypotension. 6. Mild hyperchloremia. 7. Hyperglycemia. 8. History of celiac disease. 9. History of irritable bowel syndrome. 10. Hypertensive cardiovascular disease. 11. History of gastritis. 12. History of hypertension, hyperlipidemia, celiac disease. 13. Obesity. PLAN: At this time, the patient is to be admitted to [facility]. The patient has been ordered serial labs. The patient has been ordered stool studies, stool cultures, C. diff, ova and parasite, Salmonella, Shigella. Repeat CBC ordered. The patient has been ordered a repeat obstructive series. GI consultation has been requested. Currently, the patient is on lactated Ringer's at 100 mL an hour, morphine 2 mg IV every 6 hours p.r.n., Protonix 40 IV every 12 hours, Reglan 5 mg IV every 6 hours, total eight doses, Tylenol p.r.n., Zofran 4 mg IV every 4 hours p.r.n., incentive spirometry, n.p.o. diet, SAGE stockings, SCDs, out of bed to chair, physical therapy, occupational therapy ordered. The patient has been ordered on DVT prophylaxis. The patient will be ordered GI and DVT prophylaxis. At present, we are awaiting for GI evaluation and further recommendation. The patient's further management will be dependent upon the patient's clinical condition, hemodynamic status and as per the patient response to therapeutic intervention as per the patient's diagnostic test results and as per recommendation by gastroenterology and as per the patient's response to diagnostic therapeutic intervention. All the details of the patient's condition, diagnosis, need for further diagnostic therapeutic intervention, need for further evaluation by other it security consultant was discussed and explained to the patient and the patient's daughter who was present at the bedside. All questions concerned answered to their satisfaction. Dictated and electronically signed, not read. Caleb Em MD
[2018-04-16 16:36] VITALS: BMI 30.2
[2018-04-16] MEDS ORDERED: Pneumococcal 23-Valent Vaccine IM ONE (16:36)
[2018-04-16] MEDS ORDERED: Influenza Vaccine 60 mcg/0.5 mL SYR (4YR UP) IM ONE (16:36)
--- NOTE | 2018-04-16 20:39 | CARD ---
APPROVED REPORT Date of service: 04/16/2018 EKG Measurement Heart [id number] <Conclusion> Normal sinus rhythm Minimal voltage criteria for LVH, may be normal variant Possible Lateral infarct, age undetermined Abnormal ECG
[2018-04-16 22:11] VITALS: RESP 20
[2018-04-17] MEDS: Lactated Ringer's 1,000 ML IV SCH (06:14)
[2018-04-17 06:57] LABS: BASO # 0.03 K/mm3 (0.0-2.0); BASO % 0.7 % (0.0-3.0); EOS # 0.2 (0.0-0.7); EOS % 4.2 % (1.5-5.0); GRAN # 1.39 (1.4-6.5); GRAN % 34.7 % (50.0-68.0); HEMOGLOBIN 11.4 g/dL (12.0-16.0); LYMPH # 2.1 (1.2-3.4); LYMPH % 52.7 % (22.0-35.0); MEAN CELL VOLUME 85.7 fl (80.0-105.0); MEAN CORPUSCULAR HEMOGLOBIN 26.3 pg (25.0-35.0); MEAN CORPUSCULAR HGB CONC 30.7 g/dl (31.0-37.0); MEAN PLATELET VOLUME 10.2 fl (7.0-11.0); MONO # 0.3 (0.1-0.6); MONO % 7.7 % (1.0-6.0); RBC 4.33 10^6/uL (3.5-6.1); RED CELL DISTRIBUTION WIDTH 15.1 % (11.5-14.5)
[2018-04-17 07:23] LABS: ALBUMIN 3.2 g/dL (3.0-4.8); ALT/SGPT 34 U/L (7-56); AST/SGOT 26 U/L (14-36); BILIRUBIN,DIRECT 0.3 mg/dL (0.0-0.4); BLOOD UREA NITROGEN 10 mg/dL (7-21); CALCIUM 9.2 mg/dL (8.4-10.5); GFR NON-AFRICAN AMERICAN > 60
[2018-04-17 08:13] VITALS: BP 115/70; PULSE 70; TEMP 98.2; O2SAT 99
--- NOTE | 2018-04-17 11:38 | DS ---
The patient is in room 566, bed 3. Overnight nurse's notes were reviewed. The patient was seen and evaluated by Gastroenterology. The patient's diet was advanced by Gastroenterology which the patient tolerated. The patient did have a bowel movement. The patient states that her symptoms of abdominal pain, nausea, vomiting, diarrhea has resolved at present. No adverse events were documented as per the nurse's notes. OBJECTIVE: VITAL SIGNS: T-max 97, heart rate 54, 57, 66, blood pressure 103/63, respirations 20, O2 sat 97%. HEENT: The patient's head examination is normocephalic, atraumatic. HEENT examination shows pinkish pale conjunctivae. Anicteric sclerae, dry oral mucosa. No neck rigidity. CHEST: Kyphosis. LUNGS: Shows no audible crackle, rales or wheezing. CARDIOVASCULAR: S1, S2, regular rhythm. ABDOMEN: Soft, protuberant. Positive bowel sounds. No palpable hepatosplenomegaly. No palpable organomegaly. No guarding. No rigidity, no rebound tenderness, no costovertebral angle tenderness. GENITALIA: Female. RECTAL: Deferred. EXTREMITIES: Shows no pitting edema, no calf tenderness, no Rosalind's signs. NEUROLOGIC: The patient is alert, awake, responsive, is able to move upper and lower extremities without assistance. Gait examination is not tested. VASCULAR: Palpable pulses. Plantars are downward. DTRs at 2+. NEURO: Without any deficits. Gait examination is independent. DIAGNOSTICS: 04/17, WBC 4.0, hemoglobin/hematocrit 11.4, 37.1 platelets 304, sodium 139, potassium 4.2, chloride 109, CO2 24, BUN 10, creatinine 0.7, glucose 78, calcium 9.2, phosphorus 3.7, magnesium 1.7. LFTs are within normal limits. 1. is noted on the EKG with questionable age-indeterminate lateral infarct changes. 2. Obstructive series was done yesterday, was negative for small bowel obstruction but positive stool noted in the ascending colon. IMPRESSION, PLAN AND DISCHARGE DIAGNOSES: 1. Questionable and possible partial small bowel obstruction (resolved). 2. Fecal retention in the ascending. 3. Leukopenia. 4. Normocytic anemia. 5. Hypertensive cardiovascular disease with questionable age indeterminate lateral infarct on the EKG. 6. Questionable history of celiac disease. 7. History of osmotic diarrhea. 8. Questionable history of weight loss. 9. Questionable partial small bowel obstruction (resolved). 10. Questionable Viberzi side effect. 11. History of gastritis. 12. History of internal hemorrhoids. 13. Anemia. PLAN: Plan at this time, the patient will be considered for discharge after cleared by Gastroenterology. The patient's discharge medications will be as per the updated ambulatory orders and revised home medication. DISCHARGE DIET: Will be gluten-free diet which the patient has been maintained on for many years according to the patient's daughter. Discharge followup with Dr. Erick Em and Dr. Arambula [facility] within 1 week. The patient and the patient's daughter was advised to release all medical records from this hospitalization to the PMD and Gastroenterology. Next discharge followup with PMD, Dr. Maria Antonia Suarez and Gastroenterology Dr. Arambula. During this hospitalization, the patient's condition, diagnosis, recommendation and evaluation all were discussed and explained to the patient's daughter at length in layman's language. All questions concerned answered. The patient and the patient's daughter were advised to stop Viberzi and stop all laxatives. Time spent in the discharge process 45 minutes. Dictated and electronically signed, not read. Caleb Em MD
== END 2018-04-17 12:52 | disposition home or self-care (01) ==
LOC: ED 23:27 → ERH 04-16 04:16 → 5RNO 04-16 08:36
PROVIDERS: ADMIT Internal Medicine; ATTEND Internal Medicine
DX: K56.600 Partial intestinal obstruction, unspecified as to cause (principal); K90.0 Celiac disease; K57.30 Diverticulosis of large intestine without perforation or abscess without bleeding; I11.9 Hypertensive heart disease without heart failure; K29.70 Gastritis, unspecified, without bleeding; D64.9 Anemia, unspecified; M47.9 Spondylosis, unspecified; R73.9 Hyperglycemia, unspecified; E78.5 Hyperlipidemia, unspecified; K21.9 Gastro-esophageal reflux disease without esophagitis; K64.8 Other hemorrhoids; D72.819 Decreased white blood cell count, unspecified; E66.9 Obesity, unspecified; Z68.30 Body mass index [BMI] 30.0-30.9, adult; Z88.6 Allergy status to analgesic agent
CPT/HCPCS: 36415; 74019; 74177; 80053; 81376; 81382; 82150; 82248; 82550; 82784; 83516; 83615; 83690; 83735; 84100; 84484; 85025; 85610; 85730; 86768; 87040; 93005; 96361; 96374; 96375; 96376; 97162; 97530; 99285; C9113; G0378; G8978; G8979; J2405; J2765; J7030; J7120; Q9967

== ENCOUNTER 2018-08-08 10:50 | Outpatient (CLI) | payer MEDICARE, MEDICAID | END 2018-08-08 10:51 | disposition home or self-care (01) | LOC: RAD 10:50 | DX: Z12.31 Encounter for screening mammogram for malignant neoplasm of breast (principal) ==